=== PATIENT | male | born 1960 | race Caucasian/White ===

== ENCOUNTER 2017-09-29 08:33 | Inpatient (IN) ==
[2017-09-29] MEDS ORDERED: Esmolol Bolus Inj 100 MG/10 ML Vial IV.PUSH ONE (08:49)
--- NOTE | 2017-09-29 08:58 | ED ---
HPI General Chief Complaint: Shortness of Breath/Dyspnea Stated Complaint: SOB Time Seen by Provider: 09/29/17 08:41 Source: patient Mode of arrival: ambulatory Limitations: no limitations History of Present Illness The patient is 57 years old and arrives to the ED with shortness of breath and chest discomfort. He has been gradually worsening over the past few days. He also notes swelling in the abdomen the legs. He takes a baby aspirin every day and no other medication. He has a known history of atrial fibrillation. He notes lately having copious mucus production and has been taking antitussive [id number]. Patient also notes urinary frequency all day and night with urgency. No diarrhea or vomiting. MD Complaint: shortness of breath Onset (ago): day(s) Related Data Home Medications Medication Instructions Recorded Confirmed aspirin 81 mg PO DAILY 09/29/17 09/29/17 Allergies Allergy/AdvReac Type Severity Reaction Status Date / Time No Known Allergies Allergy Unverified 09/29/17 08:48 Review of Systems ROS: all other systems reviewed are negative Constitutional Denies fever(s) and Denies increased appetite PMFSH Medical History Medical History Atrial fibrillation (Acute) Hepatitis A (Acute) BPH (benign prostatic hyperplasia) (Acute) HTN (hypertension) (Acute) Surgical History Surgical History Previous back surgery (Acute) Social History Social History Smoking Status: Light tobacco smoker Tobacco Type: Cigarettes How Often Do You Have a Drink Containing Alcohol: Monthly or less Recent Travel in [facility] within the Last 8 Weeks: No Recent Out of Country Travel within the Last 8 Weeks: No Exam Narrative Exam Narrative: GENERAL: 57-year-old male well-nourished well-developed mild to moderate distress secondary to pain in her tachycardia and her anxiety SKIN: Focused skin assessment warm/dry. HEAD: Atraumatic. Normocephalic. EYES: Pupils equal and round. No scleral icterus. No injection or drainage. ENT: No nasal bleeding or discharge. Mucous membranes pink and moist. NECK: Trachea midline. No JVD. CARDIOVASCULAR: Irregular. Tachycardic to about 160. RESPIRATORY: No accessory muscle use. Clear to auscultation. Breath sounds equal bilaterally. GASTROINTESTINAL: The abdomen is fairly prominent. No focal tenderness. MUSCULOSKELETAL: 2+ pitting edema from the mid calf distally bilaterally. No gross deformity. NEUROLOGICAL: Awake and alert. No obvious cranial nerve deficits. Motor grossly within normal limits. Normal speech. PSYCHIATRIC: Appropriate mood and affect; insight and judgment normal. Course Initial Documented Vital Signs Temperature 97.4 F L 09/29/17 08:43 Pulse Rate 170 H 09/29/17 08:43 Respiratory Rate 28 H 09/29/17 08:43 Blood Pressure 160/104 H 09/29/17 08:43 Pulse Oximetry 96 09/29/17 08:43 Last Documented Vital Signs Temperature 97.4 F L 09/29/17 08:43 Pulse Rate 105 H 09/29/17 09:30 Respiratory Rate 20 09/29/17 09:30 Blood Pressure 119/92 H 09/29/17 09:30 Pulse Oximetry 98 09/29/17 09:30 Critical Care Time Critical Care Time: Yes Total Critical Care Time: 35 Attestation: Aggregate critical care time was 40 minutes. Time to perform other separately billable procedures was not included in the critical care time. My time did not include minutes spent treating any other patients simultaneously or on activities that did not directly contribute to the patient's treatment. The services I provided to this patient were to treat and/or prevent clinically significant deterioration that could result in: cardiopulmonary arrest/decompensation I provided critical care services requiring my management, as noted below: Chart data review, documentation time, medication orders and management, vital sign assessments/reviewing monitor data, ordering and reviewing lab tests, ordering and interpreting/reviewing x-rays and diagnostic studies, care of the patient and discussion of the patient with the admitting physicians. Medical Decision Making MDM Narrative Medical decision making narrative: The patient is 57 years old. He arrives with A. fib RVR at a rate of 160 to 170. He received diltiazem 20 mg and the heart rate decreased to about 110. Cardiomegaly with clear lungs observed. BNP 500s. There is some concern for pericardial effusion. Case discussed with Dr. Fajardo for the buckle frame shaper service. Case discussed with Dr. Mcgrath for the cardiology service. CT thorax added on for characterization of pleural effusion. Echocardiogram added on about the time of admission. Lab Data Lab results reviewed: Yes I reviewed the patient's lab results. Lab results narrative: LFTs essentially normal BNP 565 Lipase WNL Tn 0.04 Result diagrams: 09/29/17 08:55 09/29/17 08:55 Lab Results 09/29/17 09/29/17 09/29/17 Range/Units 08:55 08:55 08:55 WBC 9.9 (4.0-11.0) th/mm3 RBC 5.17 (4.50-5.90) mil/mm3 Hgb 15.4 (13.0-17.0) gm/dL Hct 46.7 (39.0-51.0) % MCV 90.5 (80.0-100.0) fL MCH 29.7 (27.0-34.0) pg MCHC 32.8 (32.0-36.0) % RDW 14.9 (11.6-17.2) % Plt Count 221 (150-450) th/mm3 MPV 7.8 (7.0-11.0) fL Neut % (Auto) 60.4 (16.0-70.0) % Lymph % (Auto) 28.4 (9.0-44.0) % [place] % (Auto) 9.8 H (0.0-8.0) % Eos % (Auto) 0.8 (0.0-4.0) % Baso % (Auto) 0.6 (0.0-2.0) % Neut # (Auto) 6.0 (1.8-7.7) th/mm3 Lymph # (Auto) 2.8 (1.0-4.8) th/mm3 [place] # (Auto) 1.0 H (0.0-0.9) th/mm3 Eos # (Auto) 0.1 (0.0-0.4) th/mm3 Baso # (Auto) 0.1 (0.0-0.2) th/mm3 WBC Differential . Differential Comment Auto diff final PT 12.7 H (9.8-11.6) sec INR 1.3 Ratio APTT 26.4 (24.3-30.1) sec Sodium (136-145) meq/L Potassium (3.5-5.1) meq/L Chloride (98-107) meq/L Carbon Dioxide (21.0-32.0) meq/L Anion Gap (5-15) meq/L BUN (7-18) mg/dL Creatinine (0.60-1.30) mg/dL Estimated GFR (>89) mL/min Random Glucose (74-106) mg/dL Calcium (8.5-10.1) mg/dL Magnesium (1.5-2.5) mg/dL Total Bilirubin (0.2-1.0) mg/dL AST (15-37) U/L ALT (12-78) U/L Alkaline Phosphatase (45-117) U/L Troponin I 0.04 (0.02-0.05) ng/mL B-Natriuretic Peptide (0-100) pg/mL Total Protein (6.4-8.2) g/dL Albumin (3.4-5.0) g/dL Lipase 295 (73-393) U/L Urine Color (Yellw/Straw) Urine Clarity (Clear) Urine pH (5.0-8.5) Ur Specific [place] (1.002-1.035) Urine Protein (Neg-Trace) mg/dL Urine Glucose (UA) (Negative) mg/dL Urine Ketones (Negative) mg/dL Urine Occult Blood (Negative) Urine Nitrate (Negative) Urine Bilirubin (Negative) Urine Urobilinogen (Less than 2) mg/dL Ur Leukocyte Esterase (Negative) Urine RBC (0-3) /hpf Urine WBC (0-5) /hpf Ur Squamous Epith Cells (0-5) /hpf Urine Bacteria (None) /hpf Hyaline Casts (0-3) /lpf Granular Casts (None) /lpf Serum Alcohol Less than 3 (0-5) mg/dL 09/29/17 09/29/17 09/29/17 Range/Units 08:55 08:55 11:00 WBC (4.0-11.0) th/mm3 RBC (4.50-5.90) mil/mm3 Hgb (13.0-17.0) gm/dL Hct (39.0-51.0) % MCV (80.0-100.0) fL MCH (27.0-34.0) pg MCHC (32.0-36.0) % RDW (11.6-17.2) % Plt Count (150-450) th/mm3 MPV (7.0-11.0) fL Neut % (Auto) (16.0-70.0) % Lymph % (Auto) (9.0-44.0) % [place] % (Auto) (0.0-8.0) % Eos % (Auto) (0.0-4.0) % Baso % (Auto) (0.0-2.0) % Neut # (Auto) (1.8-7.7) th/mm3 Lymph # (Auto) (1.0-4.8) th/mm3 [place] # (Auto) (0.0-0.9) th/mm3 Eos # (Auto) (0.0-0.4) th/mm3 Baso # (Auto) (0.0-0.2) th/mm3 WBC Differential Differential Comment PT (9.8-11.6) sec INR Ratio APTT (24.3-30.1) sec Sodium 140 (136-145) meq/L Potassium 4.8 (3.5-5.1) meq/L Chloride 104 (98-107) meq/L Carbon Dioxide 29.8 (21.0-32.0) meq/L Anion Gap 6 (5-15) meq/L BUN 22 H (7-18) mg/dL Creatinine 1.18 (0.60-1.30) mg/dL Estimated GFR 63 L (>89) mL/min Random Glucose 107 H (74-106) mg/dL Calcium 8.9 (8.5-10.1) mg/dL Magnesium 2.1 (1.5-2.5) mg/dL Total Bilirubin 1.3 H (0.2-1.0) mg/dL AST 33 (15-37) U/L ALT 42 (12-78) U/L Alkaline Phosphatase 96 (45-117) U/L Troponin I (0.02-0.05) ng/mL B-Natriuretic Peptide 565 H (0-100) pg/mL Total Protein 7.0 (6.4-8.2) g/dL Albumin 3.5 (3.4-5.0) g/dL Lipase (73-393) U/L Urine Color Yellow (Yellw/Straw) Urine Clarity Clear (Clear) Urine pH 5.0 (5.0-8.5) Ur Specific [place] 1.023 (1.002-1.035) Urine Protein 30 H (Neg-Trace) mg/dL Urine Glucose (UA) Negative (Negative) mg/dL Urine Ketones Negative (Negative) mg/dL Urine Occult Blood Small H (Negative) Urine Nitrate Negative (Negative) Urine Bilirubin Negative (Negative) Urine Urobilinogen 2.0 H (Less than 2) mg/dL Ur Leukocyte Esterase Negative (Negative) Urine RBC 1 (0-3) /hpf Urine WBC 1 (0-5) /hpf Ur Squamous Epith Cells 1 (0-5) /hpf Urine Bacteria Rare H (None) /hpf Hyaline Casts 1 (0-3) /lpf Granular Casts 1 (None) /lpf Serum Alcohol (0-5) mg/dL Imaging Data Attestation: I personally reviewed and interpreted this imaging study as follows : My impression: Marked cardiomegaly lungs relatively clear lung is noted on plain film. Radiologist's impression: Chest X-Ray 09/29/17 08:47 CONCLUSION: Enlargement of the cardiac silhouette. Differential consideration would include cardiomegaly versus pericardial effusion. There is been significant interval increase in size since 2011. Chest CT 09/29/17 11:43 CONCLUSION: 1. Global cardiomegaly with minimal basilar edema and atelectasis. Mild emphysema. No significant pleural effusion. 2. Small pericardial effusion. 3. Mild ascites. 4. Mild coronary calcifications. ECG Data Interpretation: EKG: afib, rate 160s, non-specific st changes multiple leads Discharge Plan Discharge Disposition Patient Disposition: 30 Still Patient Physicians Team ED Provider: Pete Knowles Primary Care Provider: Primary Care Grecia,Barbara Attending Provider: Constantino Fajardo Other Providers: Errol Mcgrath Status ED Status: Admitted Patient
--- NOTE | 2017-09-29 09:11 | XR ---
EXAM DATE: 09/29/2017 9:08 AM EDT AGE/SEX: 57 years / Male INDICATIONS: Shortness of breath. CLINICAL DATA: This is the patient's initial encounter. Patient reports that signs and symptoms have been present for 1 day and indicates a pain score of 0/10. MEDICAL/SURGICAL HISTORY: Hypertension. None. COMPARISON: [facility] – [place], CHEST SINGLE AP, 07/21/2011. . FINDINGS: There is advanced cardiomegaly. The cardiac silhouette is considerably larger than previous dated 07/20. Pericardial effusion is not excluded. The lungs are clear. The bony structures are grossly int act. CONCLUSION: Enlargement of the cardiac silhouette. Differential consideration would include cardiomegaly versus p ericardial effusion. There is been significant interval increase in size since 2011. Electronically signed by: Pete Flanagan MD 09/29/2017 9:10 AM EDT
[2017-09-29] MEDS ORDERED: dilTIAZem Inj 50 MG/10 ML Vial IV.PUSH ONE ×2 (09:15→09:30)
[2017-09-29 09:17] LABS: Baso # (Auto) 0.1 th/mm3 (0.0-0.2); Baso % (Auto) 0.6 % (0.0-2.0); Eos # (Auto) 0.1 th/mm3 (0.0-0.4); Eos % (Auto) 0.8 % (0.0-4.0); Hematocrit 46.7 % (39.0-51.0); Hemoglobin 15.4 gm/dL (13.0-17.0); Lymph # (Auto) 2.8 th/mm3 (1.0-4.8); Lymph % (Auto) 28.4 % (9.0-44.0); Mean Corpuscular HGB Conc 32.8 % (32.0-36.0); Mean Corpuscular Hemoglobin 29.7 pg (27.0-34.0); Mean Corpuscular Volume 90.5 fL (80.0-100.0); Mean Platelet Volume 7.8 fL (7.0-11.0); Mono % (Auto) 9.8 % (0.0-8.0); Neut % (Auto) 60.4 % (16.0-70.0); Platelet Count 221 th/mm3 (150-450); Red Blood Count 5.17 mil/mm3 (4.50-5.90); Red Cell Distribution Width 14.9 % (11.6-17.2); White Blood Count 9.9 th/mm3 (4.0-11.0)
[2017-09-29 09:24] LABS: Activated Partial Thrombo Time 26.4 sec (24.3-30.1); INR 1.3 Ratio; Prothrombin Time 12.7 sec (9.8-11.6)
[2017-09-29 09:36] LABS: Lipase 295 U/L (73-393)
[2017-09-29 09:39] LABS: Alanine Aminotransferase 42 U/L (12-78); Albumin 3.5 g/dL (3.4-5.0); Anion Gap 6 meq/L (5-15); Aspartate Aminotransferase 33 U/L (15-37); Blood Urea Nitrogen 22 mg/dL (7-18); Calcium 8.9 mg/dL (8.5-10.1); Carbon Dioxide 29.8 meq/L (21.0-32.0); Chloride 104 meq/L (98-107); Glomerular Filtration Rate 63 mL/min (>89); Glucose,Random 107 mg/dL (74-106); Magnesium 2.1 mg/dL (1.5-2.5); Potassium 4.8 meq/L (3.5-5.1); Sodium 140 meq/L (136-145); Troponin I 0.04 ng/mL (0.02-0.05)
[2017-09-29 09:42] LABS: Alkaline Phosphatase 96 U/L (45-117)
[2017-09-29 11:54] LABS: Bacteria,Urine Rare /hpf; Bilirubin,Urine Negative (Negative); Color,Urine Yellow (Yellw/Straw); Glucose,Urine (UA) Negative (Negative); Hyaline Casts,Urine 1 /lpf (0-3); Leukocyte Esterase,Urine Negative (Negative); Nitrite,Urine Negative (Negative); Specific Gravity,Urine 1.023 (1.002-1.035); Squamous Epithelial Cell,Urine 1 /hpf (0-5)
[2017-09-29 11:56] LABS: Clarity,Urine Clear (Clear)
--- NOTE | 2017-09-29 12:38 | CT ---
EXAM DATE: 09/29/2017 12:21 PM EDT AGE/SEX: 57 years / Male INDICATIONS: Shortness of breath, worsening over the last week. Abdominal distention. CLINICAL DATA: This is the patient's initial encounter. Patient reports that signs and symptoms have been present for 1 day and indicates a pain score of 0/10. MEDICAL/SURGICAL HISTORY: Cardiovascular disease. Hypertension. None. RADIATION DOSE: 18.58 CTDI (mGy) COMPARISON: No prior exams available for comparison. TECHNIQUE: Multiple contiguous axial images were obtained through the chest without contrast. Image s were obtained in suspended respiration using multiple row detector helical technique. Using automa alivia exposure control and adjustment of the mA and/or kV according to patient size, radiation dose was kept as low as reasonably achievable to obtain optimal diagnostic quality images. DICOM format imag e data is available electronically for review and comparison. FINDINGS: There is global cardiomegaly. There is a minimal groundglass opacity in the bases which could represe nt minimal edema. Also basilar atelectasis there is a small pericardial. No significant pleural effus ion. Mild centrilobular and paraseptal emphysema. Mildly enlarged mediastinal lymph nodes present, probably edematous. Mild coronary calcifications. Upper abdomen reveals mild ascites. CONCLUSION: 1. Global cardiomegaly with minimal basilar edema and atelectasis. Mild emphysema. No significant pl eural effusion. 2. Small pericardial effusion. 3. Mild ascites. 4. Mild coronary calcifications. Electronically signed by: Daniel Alvarez MD 09/29/2017 12:36 PM EDT
--- NOTE | 2017-09-29 12:42 | ECG ---
Date Performed: 09/29/2017 Time Performed: 08:44:38 PTAGE: 57 years EKG: ATRIAL FIBRILLATION WITH RAPID VENTRICULAR RESPONSE POSSIBLE RIGHT VENTRICULAR CONDUCTION D ELAY NONSPECIFIC ST & T-WAVE ABNORMALITY ABNORMAL RHYTHM ECG Compared to prior electrocardiogram, rat e has increased NO PREVIOUS TRACING DOCTOR: Mitchell Hill Interpretating Date/Time 09/29/2017 12:41:46
[2017-09-29] MEDS ORDERED: Acetaminophen 325 MG Tablet PO PRN (12:55)
[2017-09-29] MEDS ORDERED: Bisacodyl 10 MG Supp RECTAL PRN (12:55)
[2017-09-29] MEDS ORDERED: Metoprolol Inj 5 MG/5 ML Vial IV.PUSH STA (13:03)
[2017-09-29] MEDS: Esmolol 2,500 mg/250 mL Premix 2,500 MG/250 ML BAG IV.CONT PRN ×5 (13:13→23:18)
--- NOTE | 2017-09-29 13:26 | P.HPCC ---
History of Present Illness Primary Care Physician: No Primary Care Physician Chief Complaint: Shortness of Breath worsening since 1 week History of Present Illness: 57-year-old male with a medical history significant for atrial fibrillation who has not followed up with physicians for years who presented to the ER today with progressive shortness of breath worsening over the last week or so with increasing abdominal distention as well as palpitations. On arrival to the ER patient was noted to be in A. fib with RVR. A bedside ultrasound performed by ER physician revealed no pericardial effusion. His chest x-ray showed cardiomegaly. Patient underwent a CT chest which revealed small pericardial effusion, cardiomegaly. Patient was accepted for admission by critical care medicine service. When I evaluated the patient in the ER he was sitting up in the ER stretcher still short of breath with heart rate in the 130s. He denies any fevers chills hemoptysis or abdominal pain. He does complain of increasing abdominal distention over the last 1 week with abdominal tightness. Patient tells me that he takes aspirin at home. He has not seen a physician for years due to lack of insurance. Inpatient Certification: I certify that the inpatient services were ordered in accordance with Medicare regulations governing the order. This includes certification that hospital inpatient services are reasonable and necessary and in the case of services not specified as inpatient-only under 42 CFR 419.22(n), that they are appropriately provided as inpatient services in accordance to with the 2-midnight benchmark under 43 CFR 412.3(e) Estimated Total Length of Stay (Days): 5 Plans for Post Hospital Care: Not yet determined Review of Systems All other systems reviewed negative except as stated in HPI [facility] - History History Provided By: Patient - Medical History Medical History: Medical History (Last Updated 09/29/17 @ 09:09 by Grady Arnold RN) Atrial fibrillation Hepatitis A BPH (benign prostatic hyperplasia) HTN (hypertension) - Surgical History Surgical History: Surgical History (Last Updated 09/29/17 @ 08:50 by Grady Arnold RN) Previous back surgery - Tobacco History Tobacco Use In Past 30 Days: Yes Smoking Status: Light tobacco smoker Tobacco Type: Cigarettes - Alcohol History How Often Do You Have a Drink Containing Alcohol: Monthly or less - Travel History Recent Travel in the [place] Within the Last 8 Weeks: No Recent Travel Out of the Country Within the Last 8 Weeks: No - Immunization History Tetanus Immunization: >5 Years Hx Influenza Vaccine This Season: No Medications and Allergies Active Medications: Active Medications Acetaminophen (Tylenol) 650 mg PO Q6H PRN PRN Reason: PAIN 1-10 AND/OR FEVER >101F Al Hydroxide/Mg Hydroxide (Milk Of Magnesia Liq) 30 ml PO Q12H PRN PRN Reason: Mild Constipation Bisacodyl (Dulcolax Supp) 10 mg RECTAL DAILY PRN PRN Reason: SEVERE CONSITIPATION Chlorhexidine Gluconate (Chlorhexidine 2% Cloth) 3 pack TOPICAL DAILY@0400 ANGE Stop: 10/05/17 03:59 Chlorhexidine Gluconate (Chlorhexidine 2% Cloth) 3 pack TOPICAL DAILY@0400 PRN PRN Reason: Extra cloth needed Stop: 10/05/17 03:59 Enoxaparin Sodium (Lovenox Inj) 40 mg SQ Q24H ANGE Famotidine (Pepcid) 20 mg PO BID ANGE Furosemide (Lasix Inj) 40 mg IV.PUSH ONCE STA Stop: 09/29/17 13:06 Furosemide (Lasix Inj) 40 mg IV.PUSH BID@0900,1800 ANGE Esmolol HCl (Brevibloc 2,500 Mg/Ns 250 Ml Premix) 2,500 mg in 250 mls @ 35.28 mls/hr IV.CONT TITRATE PRN; Protocol PRN Reason: Per Protocol Ipratropium [place] (Atrovent Neb) 0.5 mg NEB Q6HR NEB ANGE Lactulose (Lactulose Liq) 30 ml PO DAILY PRN PRN Reason: SEVERE CONSITIPATION Metoprolol Tartrate (Lopressor Inj) 5 mg IV.PUSH Q6H PRN PRN Reason: SEE DOSE INSTRUCTIONS Metoprolol Tartrate (Lopressor Inj) 5 mg IV.PUSH ONCE STA Stop: 09/29/17 13:04 Ondansetron HCl (Zofran Inj) 4 mg IV.PUSH Q6H PRN PRN Reason: NAUSEA OR VOMITING Senna/Docusate Sodium (Yoly-Colace) 1 tab PO BID ANGE Sennosides (Senokot) 17.2 mg PO Q12H PRN PRN Reason: Moderate Constipation Sodium Chloride (Ns Flush) 2 ml IV.FLUSH UNSCH PRN PRN Reason: FLUSH AFTER USING IV ACCESS Sodium Chloride (Ns Flush) 2 ml IV.FLUSH BID ANGE Sodium Chloride (Ns Flush) 2 ml IV.FLUSH PRN PRN PRN Reason: FLUSH AFTER USING IV ACCESS Allergies Allergy/AdvReac Type Severity Reaction Status Date / Time No Known Allergies Allergy Unverified 09/29/17 08:48 Home Medications Medication Instructions Recorded Confirmed Type aspirin 81 mg PO DAILY 09/29/17 09/29/17 History Results - Labs CBC & Chem 7: 09/29/17 08:55 09/29/17 08:55 Labs: Short CBC 09/29/17 Range/Units 08:55 WBC 9.9 (4.0-11.0) th/mm3 Hgb 15.4 (13.0-17.0) gm/dL Hct 46.7 (39.0-51.0) % Plt Count 221 (150-450) th/mm3 BMP 09/29/17 08:55 Sodium 140 Potassium 4.8 Chloride 104 Carbon Dioxide 29.8 BUN 22 H Creatinine 1.18 Calcium 8.9 Cardiac Enzymes 09/29/17 Range/Units 08:55 Troponin I 0.04 (0.02-0.05) ng/mL Liver Function 09/29/17 Range/Units 08:55 Total Bilirubin 1.3 H (0.2-1.0) mg/dL AST 33 (15-37) U/L ALT 42 (12-78) U/L Alkaline Phosphatase 96 (45-117) U/L Albumin 3.5 (3.4-5.0) g/dL Urine 09/29/17 Range/Units 11:00 Urine Color Yellow (Yellw/Straw) Urine Clarity Clear (Clear) Urine pH 5.0 (5.0-8.5) Ur Specific [place] 1.023 (1.002-1.035) Urine Protein 30 H (Neg-Trace) mg/dL Urine Glucose (UA) Negative (Negative) mg/dL - Imaging Impressions Chest X-Ray 09/29/17 08:47 CONCLUSION: Enlargement of the cardiac silhouette. Differential consideration would include cardiomegaly versus pericardial effusion. There is been significant interval increase in size since 2011. Chest CT 09/29/17 11:43 CONCLUSION: 1. Global cardiomegaly with minimal basilar edema and atelectasis. Mild emphysema. No significant pleural effusion. 2. Small pericardial effusion. 3. Mild ascites. 4. Mild coronary calcifications. Exam Vital signs: Vital Signs 09/29/17 08:43 09/29/17 08:47 09/29/17 08:53 Temperature 97.4 F L Pulse Rate 170 H 169 H Respiratory Rate 28 H Blood Pressure 160/104 H Pulse Oximetry 96 99 99 09/29/17 09:30 Temperature Pulse Rate 105 H Respiratory Rate 20 Blood Pressure 119/92 H Pulse Oximetry 98 Intake & Output 09/28/17 09/29/17 09/29/17 18:59 06:59 18:59 Weight 117.6 kg Narrative: HEENT/Neuro: No pallor or icterus, tongue moist, JAMEY, Awake alert oriented 3 , nonfocal grossly, moving all 4 extremities Neck: JVD difficult to appreciate due to body habitus. Chest/pulmonary: Air entry decreased bilaterally at bases, scattered rhonchi, no wheezing. Bibasilar crackles. Cardiovascular: S1-S2 irregularly irregular no gallop or murmur GI/abdomen: Distended, firm, nontender, bowel sounds sluggish, no organomegaly appreciated Extremities: Warm bilaterally, bilateral edema Caprini VTE Risk Assessment Caprini VTE Risk Assessment: Moderate/High Risk (score >= 2) Caprini Risk Assessment Model: Point Value = 1 Point Value = 2 Point Value = 3 Point Value = 5 Age 41-60 Minor surgery BMI > 25 kg/m2 Swollen legs Varicose veins or History of unexplained or recurrent spontaneous Oral contraceptives or hormone replacement Sepsis (< 1 month) Serious lung disease, including pneumonia (< 1 month) Abnormal pulmonary function Acute myocardial infarction Congestive heart failure (< 1 month) History of inflammatory bowel disease Medical patient at bed rest Age 61-74 Arthroscopic surgery Major open surgery (> 45 min) Laparoscopic surgery (> 45 min) Malignancy Confined to bed (> 72 hours) Immobilizing plaster cast Central venous access Age >= 75 History of VTE Family history of VTE Factor V Leiden Prothrombin [id number] Lupus anticoagulant Anticardiolipin antibodies Elevated serum homocysteine Heparin-induced thrombocytopenia Other congenital or acquired thrombophilia Stroke (< 1 month) Elective arthroplasty Hip, pelvis, or leg fracture Acute spinal cord injury (< 1 month) Prophylaxis Regimen: Total Risk Factor Score Risk Level Prophylaxis Regimen 0-1 Low Early ambulation 2 Moderate Order ONE of the following: *Sequential Compression Device (SCD) *Heparin 5000 units SQ BID 3-4 Higher Order ONE of the following medications: *Heparin 5000 units SQ TID *Enoxaparin/Lovenox 40 mg SQ daily (WT < 150 kg, CrCl > 30 mL/min) *Enoxaparin/Lovenox 30 mg SQ daily (WT < 150 kg, CrCl > 10-29 mL/min) *Enoxaparin/Lovenox 30 mg SQ BID (WT < 150 kg, CrCl > 30 mL/min) AND/OR *Sequential Compression Device (SCD) 5 or more Highest Order ONE of the following medications: *Heparin 5000 units SQ TID (Preferred with Epidurals) *Enoxaparin/Lovenox 40 mg SQ daily (WT < 150 kg, CrCl > 30 mL/min) *Enoxaparin/Lovenox 30 mg SQ daily (WT < 150 kg, CrCl > 10-29 mL/min) *Enoxaparin/Lovenox 30 mg SQ BID (WT < 150 kg, CrCl > 30 mL/min) AND *Sequential Compression Device (SCD) Assessment and Plan - Assessment and Plan Plan: 57-year-old male with: Acute respiratory failure CHF A. fib with RVR Pericardial effusion History of BPH Morbid obesity Plan: Neuro: Follow neuro status. Starting aspirin for stroke prophylaxis. May need full anticoagulation following cardiology eval for A. fib. Cardiovascular: Metoprolol 5 mg IV stat followed by 5 mg IV every 6 hourly as needed for rate control. Esmolol drip to be initiated. Will add Cardizem CD 180 mg p.o. daily. Diuresis with Lasix. Stat 2D echo ordered earlier further evaluate pericardial effusion. Follow serial cardiac enzymes. Cardiology consult requested. Pulmonary: Continue supplemental O2. Atrovent nebs every 6 hourly. GI/liver: Cardiac diet ordered. Zofran as needed for nausea vomiting. Pepcid p.o. for GI prophylaxis /renal: Diuresis with Lasix, strict intake output, monitor and replete electrolytes, follow BUN creatinine. ID: No indication for antibiotics at this time. Heme: Follow CBC and coags. Patient may require full anticoagulation for A. fib. Will await cardiology evaluation. Endocrine: Watch for hyperglycemia, SSI for glycemic control if needed. Prophylaxis: Pepcid/SCDs/Lovenox. Condition critical Time spent on critical care excluding procedures 45 minutes
[2017-09-29] MEDS ORDERED: Digoxin Inj 500 MCG/2 ML Ampul IV.PUSH STA (13:30)
[2017-09-29] MEDS: Digoxin Inj 500 MCG/2 ML Ampul IV.PUSH ONE ×2 (16:10→16:18)
--- NOTE | 2017-09-29 16:14 | ECHRPT ---
Indication: ATRIAL FIB/FLUTTER CONCLUSIONS Upper normal left ventricular size. Mild concentric left ventricular hypertrophy. The left ventricular systolic function is severely reduced with an estimated ejection fraction of 20 %. The basal posterior wall contracts fairly normally. All other ocampo are severely hypokinetic. The right ventricle was not well visualized. The right ventricular systolic function is probably at least mildly decreased. The right ventricle is probably mildly dilated. The right atrial size is moderately dilated. The left atrial size is moderately dilated. There is moderate to severe tricuspid valve regurgitation. The estimated pulmonary arterial pressure is 44 mmHg. Trace mitral regurgitation. There is a small pericardial effusion present. No tamponade physiology. BP: / HR: Rhythm: Sinus MEASUREMENTS (Male / Female) Normal Values Technical Quality:Fair 2D ECHO LV Diastolic Diameter PLAX 5.0 cm 4.2 - 5.9 / 3.9 - 5.3 cm LV Systolic Diameter PLAX 4.7 cm IVS Diastolic Thickness 1.2 cm 0.6 - 1.0 / 0.6 - 0.9 cm LVPW Diastolic Thickness 1.2 cm 0.6 - 1.0 / 0.6 - 0.9 cm LV Relative Wall Thickness 0.5 RV Internal Dim ED PLAX 3.8 cm LVOT Diameter 2.4 cm Aortic Root Diameter 2.9 cm LA Systolic Diameter LX 5.2 cm 3.0 - 4.0 / 2.7 - 3.8 cm M-MODE AV Cusp Separation MM 2.0 cm DOPPLER AV Peak Velocity 106.2 cm/s AV Peak Gradient 4.5 mmHg AV Mean Gradient 2.5 mmHg AV Velocity Time Integral 14.5 cm LVOT Peak Velocity 49.4 cm/s LVOT Peak Gradient 1.0 mmHg LVOT Velocity Time Integral 6.6 cm AV Area Cont Eq vti 2.1 cm AV Area Cont Eq pk 2.1 cm Mitral E Point Velocity 79.7 cm/s LV E' Lateral Velocity 12.5 cm/s Mitral E to LV E' Lateral Ratio 6.4 LV E' Septal Velocity 8.5 cm/s Mitral E to LV E' Septal Ratio 9.4 TR Peak Velocity 292.0 cm/s TR Peak Gradient 34.1 mmHg Right Atrial Pressure 10.0 mmHg Pulmonary Artery Systolic Pressu 44.1 mmHg Right Ventricular Systolic Press 44.1 mmHg PV Peak Velocity 34.6 cm/s PV Peak Gradient 0.5 mmHg FINDINGS LEFT VENTRICLE Upper normal left ventricular size. Mild concentric left ventricular hypertrophy. The left ventricular systolic function is severely reduced with an estimated ejection fraction of 20 %. The basal posterior wall contracts fairly normally. All other ocampo are severely hypokinetic. RIGHT VENTRICLE The right ventricle was not well visualized. The right ventricular systolic function is probably at least mildly decreased. The right ventricle is probably mildly dilated. LEFT ATRIUM The left atrial size is moderately dilated. RIGHT ATRIUM The right atrial size is moderately dilated. ATRIAL SEPTUM No atrial level shunt is demonstrated by color flow Doppler interrogation. AORTA The aortic root and proximal ascending aorta are normal in size on limited imaging. MITRAL VALVE Mild thickening of the mitral valve leaflets. Trace mitral regurgitation. AORTIC VALVE Trileaflet aortic valve. No aortic valve stenosis or regurgitation. TRICUSPID VALVE There is moderate to severe tricuspid valve regurgitation. The estimated pulmonary arterial pressure is 44 mmHg. PULMONARY VALVE No pulmonary valve regurgitation or stenosis. PERICARDIUM There is a small pericardial effusion present. No tamponade physiology. Errol Mcgrath MD (Electronically Signed) Final Date:29 September 2017 16:12
--- NOTE | 2017-09-29 16:46 | MB ---
cc: Errol Mcgrath MD DATE: 09/29/2017 REASON FOR CONSULTATION: Pericardial effusion, atrial fibrillation, shortness of breath. HISTORY OF PRESENT ILLNESS: The patient is a 57-year-old white male with a history of atrial fibrillation, which is likely chronic, hepatitis A, hypertension, who presented to the emergency department with a number of complaints, most notably increased shortness of breath and abdominal distention. In the last several months, he has noted progressively worsening shortness of breath with minimal to no exertion. In addition, he has experienced paroxysmal nocturnal dyspnea and 2- to 3-pillow orthopnea for the past few months. He denies chest pain, palpitations, syncope, near-syncope, pedal edema. At times, he feels mildly lightheaded for a few seconds. In the emergency department, he was found to be in atrial fibrillation with a rapid ventricular response. CT of the chest and apparently bedside echo suggested small pericardial effusion. The patient believes he may have had flu symptoms about a year ago, but none since. He denies any history of alcohol or drug abuse. He has abdominal distension for at least the past week. PAST MEDICAL HISTORY: 1. Atrial fibrillation, which is likely chronic. The patient has an EKG from 02/17/1988 showing atrial fibrillation as well as an EKG from 2011 showing atrial fibrillation. 2. Hypertension. 3. Hepatitis A. CARDIAC MEDICATIONS AT HOME: Aspirin 81 mg daily. CARDIAC MEDICATIONS HERE IN THE HOSPITAL: Aspirin 162 mg p.o. daily, Lovenox 40 mg subcutaneously q.24 hours, esmolol drip, furosemide 40 mg IV b.i.d., metoprolol tartrate 5 mg IV q.6 hours p.r.n. ALLERGIES: NO KNOWN DRUG ALLERGIES. FAMILY HISTORY: There is no significant family history of early myocardial infarction or sudden cardiac . SOCIAL HISTORY: The patient quit smoking cigarettes about a week ago. Prior to that, he was smoking about a pack per week. He also quit drinking alcohol a week ago. Prior to that, he was drinking about 7 alcoholic drinks per week. REVIEW OF SYSTEMS: As in the history of present illness, otherwise negative or noncontributory. He also denies headache, abdominal pain, melena, dyspepsia, bright red blood per rectum, fevers. PHYSICAL EXAMINATION: VITAL SIGNS: His blood pressure 115/90 with a pulse of 115, respirations 20. GENERAL: He is a well-developed, well-nourished white male, in no acute distress. NECK: Jugular venous pressure is hard to assess. Carotid pulses are 2+ bilaterally and without bruits. CHEST: Reveals diminished breath sounds at the bases. CARDIAC: He has a tachycardic irregular rhythm without S3 or murmur. ABDOMEN: He has a soft, obese abdomen, which may be mild to moderately distended. No definite fluid wave is appreciated. Bowel sounds are present. EXTREMITIES: Reveals no clubbing or cyanosis. There is 1+ pretibial edema bilaterally. LABORATORY DATA: Includes normal CBC. Potassium 4.8, BUN 22, creatinine 1.18. Brain natriuretic peptide level 565. Troponin 0.04. INR 1.3. Chest x-ray shows increased cardiac silhouette, although with overall probable clear lung luna. IMPRESSION: Elevated heart rates, probable right greater than left-sided congestive heart failure, small pericardial effusion in this 57-year-old white male with history of atrial fibrillation, which is likely chronic, history of hypertension, hepatitis A. At this time, he remains in atrial fibrillation with mildly elevated heart rates. There is no definite evidence for acute coronary syndrome. EKG shows nonspecific T-wave abnormalities. I suspect the patient has severe left and right ventricular systolic dysfunction. The etiology of his probable cardiomyopathy is likely nonischemic in origin. Alternatively, it may be tachycardia mediated. The patient denies any history of alcohol or IV drug abuse. If indeed his left ventricular function is reduced, his thromboembolic risk with atrial fibrillation is high. RECOMMENDATIONS: 1. Await his 2-D echo. 2. Agree with intravenous Lasix and beta og therapy. 3. Add an FINN inhibitor as his blood pressures tolerate. 4. In anticipation that his left ventricular function will be reduced on echocardiogram, recommend starting warfarin. MD TOI Torres/santa , 02:16 PM , 02:28 PM KRIS
[2017-09-29] MEDS: Enoxaparin Inj 40 MG/0.4 ML Syringe SQ SCH (17:39)
[2017-09-29] MEDS: Famotidine 20 MG Tablet PO SCH (21:14)
[2017-09-29] MEDS: Senna/Docusate Sodium 8.6/50 MG Tablet PO SCH (21:15)
[2017-09-29] MEDS: Metoprolol Tartrate 25 MG Tablet PO SCH (21:15)
[2017-09-30] MEDS: Esmolol 2,500 mg/250 mL Premix 2,500 MG/250 ML BAG IV.CONT PRN ×4 (01:49→07:58)
[2017-09-30] MEDS ORDERED: Chlorhexidine Gluconate 2% 1 Pack (2 Cloths) TOPICAL PRN (04:00)
[2017-09-30] MEDS: Chlorhexidine Gluconate 2% 1 Pack (2 Cloths) TOPICAL SCH (06:03)
[2017-09-30 07:13] LABS: Hemoglobin 14.4 gm/dL (13.0-17.0); Red Blood Count 4.78 mil/mm3 (4.50-5.90)
[2017-09-30 07:14] LABS: Baso # (Auto) 0.1 th/mm3 (0.0-0.2); Baso % (Auto) 0.7 % (0.0-2.0); Eos # (Auto) 0.1 th/mm3 (0.0-0.4); Eos % (Auto) 0.6 % (0.0-4.0); Hematocrit 44.2 % (39.0-51.0); Lymph # (Auto) 1.8 th/mm3 (1.0-4.8); Lymph % (Auto) 18.4 % (9.0-44.0); Mean Corpuscular HGB Conc 32.6 % (32.0-36.0); Mean Corpuscular Hemoglobin 30.1 pg (27.0-34.0); Mean Corpuscular Volume 92.4 fL (80.0-100.0); Mean Platelet Volume 8.1 fL (7.0-11.0); Mono # (Auto) 0.9 th/mm3 (0.0-0.9); Mono % (Auto) 8.9 % (0.0-8.0); Neut # (Auto) 7.1 th/mm3 (1.8-7.7); Neut % (Auto) 71.4 % (16.0-70.0); Platelet Count 168 th/mm3 (150-450); Red Cell Distribution Width 14.4 % (11.6-17.2)
[2017-09-30 07:24] LABS: INR 1.3 Ratio; Prothrombin Time 12.7 sec (9.8-11.6)
[2017-09-30 07:35] LABS: Anion Gap 5 meq/L (5-15); Aspartate Aminotransferase 24 U/L (15-37); Blood Urea Nitrogen 21 mg/dL (7-18); Calcium 8.3 mg/dL (8.5-10.1); Carbon Dioxide 34.6 meq/L (21.0-32.0); Chloride 101 meq/L (98-107); Glomerular Filtration Rate 62 mL/min (>89); Glucose,Random 98 mg/dL (74-106); Potassium 4.6 meq/L (3.5-5.1); Sodium 141 meq/L (136-145)
[2017-09-30 07:41] LABS: Alanine Aminotransferase 31 U/L (12-78); Alkaline Phosphatase 88 U/L (45-117); Total Protein 6.1 g/dL (6.4-8.2); Troponin I 0.04 ng/mL (0.02-0.05)
[2017-09-30] MEDS: Metoprolol Inj 5 MG/5 ML Vial IV.PUSH PRN ×3 (07:55→14:30)
[2017-09-30] MEDS: Senna/Docusate Sodium 8.6/50 MG Tablet PO SCH ×2 (08:00→21:23)
[2017-09-30] MEDS: Famotidine 20 MG Tablet PO SCH ×2 (08:00→21:24)
[2017-09-30] MEDS: Metoprolol Tartrate 25 MG Tablet PO SCH (08:00)
--- NOTE | 2017-09-30 08:25 | P.PNCA ---
Subjective Interval history: Feeling "much better". No palpitations, SOB, dizziness, near syncope, PND, CP. Slept intermittently. Physical Exam Vital signs: Vital Signs 09/29/17 08:43 09/29/17 08:47 09/29/17 08:53 Temperature 97.4 F L Pulse Rate 170 H 169 H Respiratory Rate 28 H Blood Pressure 160/104 H Pulse Oximetry 96 99 99 09/29/17 09:30 09/29/17 11:00 09/29/17 12:00 Temperature Pulse Rate 105 H 126 H 122 H Respiratory Rate 20 19 Blood Pressure 119/92 H 128/100 H Pulse Oximetry 98 96 97 09/29/17 13:15 09/29/17 13:45 09/29/17 14:12 Temperature Pulse Rate 134 H 114 H 116 H Respiratory Rate 19 19 18 Blood Pressure 143/66 H 115/90 110/90 Pulse Oximetry 97 97 09/29/17 14:45 09/29/17 14:47 09/29/17 14:48 Temperature 97.4 F L Pulse Rate 109 H 110 H 107 H Respiratory Rate 26 H 25 H 23 Blood Pressure 143/102 H 130/94 H Pulse Oximetry 96 97 09/29/17 15:00 09/29/17 15:07 09/29/17 15:20 Temperature 97.6 F Pulse Rate 111 H 111 H 99 H Respiratory Rate 22 22 21 Blood Pressure 143/88 H 143/88 H 159/93 H Pulse Oximetry 96 96 95 09/29/17 15:41 09/29/17 16:00 09/29/17 16:01 Temperature 97.8 F Pulse Rate 101 H 104 H 101 H Respiratory Rate 32 H 21 25 H Blood Pressure 134/104 H 162/75 H 162/75 H Pulse Oximetry 93 L 94 L 96 09/29/17 16:20 09/29/17 16:33 09/29/17 16:40 Temperature Pulse Rate 107 H 101 H 99 H Respiratory Rate 23 27 H 20 Blood Pressure 155/104 H 141/96 H 137/104 H Pulse Oximetry 96 92 L 96 09/29/17 16:59 09/29/17 17:00 09/29/17 17:13 Temperature Pulse Rate 104 H 106 H 99 H Respiratory Rate 21 30 H 17 Blood Pressure 143/96 H 134/114 H Pulse Oximetry 95 94 L 09/29/17 17:20 09/29/17 17:40 09/29/17 18:00 Temperature Pulse Rate 98 H 94 H 105 H Respiratory Rate 24 22 33 H Blood Pressure 132/92 H 135/95 H Pulse Oximetry 98 96 85 L 09/29/17 18:02 09/29/17 19:00 09/29/17 20:00 Temperature 97.6 F 97.8 F Pulse Rate 105 H 83 94 H Respiratory Rate 44 H 25 H 22 Blood Pressure 121/102 H 134/79 121/74 Pulse Oximetry 96 93 L 94 L 09/29/17 20:54 09/29/17 22:00 09/29/17 23:20 Temperature 97.6 F Pulse Rate 86 96 H 83 Respiratory Rate 17 20 18 Blood Pressure 115/82 Pulse Oximetry 96 95 88 L 09/29/17 23:40 09/30/17 00:00 09/30/17 00:07 Temperature 98.0 F Pulse Rate 91 H 99 H 100 H Respiratory Rate 18 18 35 H Blood Pressure 115/67 110/75 110/75 Pulse Oximetry 96 93 L 95 09/30/17 00:20 09/30/17 00:40 09/30/17 01:00 Temperature Pulse Rate 88 94 H 93 H Respiratory Rate 18 19 27 H Blood Pressure 118/78 118/75 122/64 Pulse Oximetry 94 L 92 L 90 L 09/30/17 01:21 09/30/17 01:40 09/30/17 02:00 Temperature 98.1 F Pulse Rate 91 H 92 H 86 Respiratory Rate 27 H 18 21 Blood Pressure 107/66 118/77 106/77 Pulse Oximetry 91 L 93 L 95 09/30/17 02:21 09/30/17 02:41 09/30/17 03:00 Temperature Pulse Rate 95 H 91 H 99 H Respiratory Rate 29 H 18 39 H Blood Pressure 111/73 162/95 H Pulse Oximetry 91 L 93 L 81 L 09/30/17 03:01 09/30/17 03:20 09/30/17 03:40 Temperature Pulse Rate 98 H 94 H 85 Respiratory Rate 29 H 21 16 Blood Pressure 130/73 127/83 111/80 Pulse Oximetry 92 L 91 L 90 L 09/30/17 04:00 09/30/17 04:15 09/30/17 04:20 Temperature 97.8 F Pulse Rate 100 H 87 88 Respiratory Rate 19 17 23 Blood Pressure 110/85 116/77 Pulse Oximetry 89 L 97 09/30/17 04:40 09/30/17 05:00 09/30/17 05:01 Temperature Pulse Rate 85 97 H 104 H Respiratory Rate 16 34 H 43 H Blood Pressure 108/75 125/89 Pulse Oximetry 95 89 L 89 L 09/30/17 05:20 09/30/17 05:40 09/30/17 06:00 Temperature 97.8 F Pulse Rate 82 87 87 Respiratory Rate 15 18 20 Blood Pressure 117/65 122/75 118/71 Pulse Oximetry 92 L 93 L 91 L 09/30/17 06:20 09/30/17 06:40 09/30/17 07:00 Temperature Pulse Rate 87 87 97 H Respiratory Rate 19 18 39 H Blood Pressure 116/76 135/93 H 121/88 Pulse Oximetry 97 96 92 L Intake & Output 09/29/17 09/30/17 09/30/17 18:59 06:59 18:59 Intake Total 250 / 250 2100 / 2100 250 / 250 Output Total 5 / 177 3450 / 3450 Balance -1525 / -1525 -1350 / -1350 250 / 250 Weight 117.6 kg 53.8 kg Intake: IV 250 / 250 1500 / 1500 250 / 250 Brevibloc 2,500 mg/NS 250 mL 250 / 250 1500 / 1500 250 / 250 Premix 2,500 mg In 250 ml @ 50 MCG/KG/MIN 35.28 mls/hr IV.CONT TITRATE PRN Rx#:[id number] Oral 600 / 600 Output: Stool 0 / 0 Urine/Stool Mix 0 / 0 Urine Amount (Catheter) 5 / 177 3450 / 3450 Indwelling Urethral Catheter 1775 / 177 3450 / 3450 Other: # Bowel Movements 0 - Constitutional no acute distress - Routine Neck Exam Present: JVD Comments: JVD possibly to mandible - Routine Respiratory Exam Present: decreased breath sounds - Routine Cardiovascular Exam Present: S1, S2, irregular rhythm. Absent: murmur, gallop - Routine Abdominal Exam Present: soft, normoactive bowel sounds. Absent: tenderness, organomegaly - Routine Extremities Exam Present: edema. Absent: cyanosis, clubbing Comments: 1+ pretibial edema - Urinary Catheter Management Indwelling Urethral Catheter Cath placed during this visit: yes Reason for continuing: Hourly intake/output Insertion date: 09/29/17 Insertion time: 13:22 Assessment and Plan - Assessment (1) Congestive heart failure Code(s): I50.9 - Heart failure, unspecified Status: Chronic Plan: Improved since admission. Less abdominal distension, pedal edema. Mostly right sided CHF. EF 20% by echo, probably with some RV dysfunction as well. Moreover he has moderate to severe tricuspid regurgitation, likely contributing to ascites, pedal edema. His cardiomyopathy is likely non-ischemic in origin. 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 REC continue diuresis, optimize beta og dosing as much as BP's tolerate, continue FINN-I (2) Atrial fibrillation Code(s): I48.91 - Unspecified atrial fibrillation Status: Chronic Plan: Suspect his atrial fibrillation is chronic. Even an EKG dated 1988 shows atrial fibrillation. Atria on echo are also moderately enlarged consistent with chronic atrial fibrillation. With his history of hypertension and CHF, his thromboembolic risk is high. HR's overall better controlled. REC optimize beta og dosing as much as tolerated, continue warfarin to achieve INR 2-2.5 - Plan Code Status: full code Discussed Condition With: patient (1) Congestive heart failure Qualifiers: Heart failure type: systolic Heart failure chronicity: acute on chronic Qualified Code(s): I50.23 - Acute on chronic systolic (congestive) heart failure (2) Atrial fibrillation Qualifiers: Atrial fibrillation type: chronic Qualified Code(s): I48.2 - Chronic atrial fibrillation
[2017-09-30] MEDS ORDERED: Metoprolol Tartrate 25 MG Tablet PO PRN (08:39)
--- NOTE | 2017-09-30 12:15 | P.PNCC ---
Subjective Subjective Remarks/Hospital Course: 09/29: 57-year-old male with a medical history significant for atrial fibrillation who has not followed up with physicians for years who presented to the ER today with progressive shortness of breath worsening over the last week or so with increasing abdominal distention as well as palpitations. On arrival to the ER patient was noted to be in A. fib with RVR. A bedside ultrasound performed by ER physician revealed no pericardial effusion. His chest x-ray showed cardiomegaly. Patient underwent a CT chest which revealed small pericardial effusion, cardiomegaly. Patient was accepted for admission by critical care medicine service. When I evaluated the patient in the ER he was sitting up in the ER stretcher still short of breath with heart rate in the 130s. He denies any fevers chills hemoptysis or abdominal pain. He does complain of increasing abdominal distention over the last 1 week with abdominal tightness. Patient tells me that he takes aspirin at home. He has not seen a physician for years due to lack of insurance. 09/30: Breathing much better. Still on 5 L nasal cannula. Diuresed well overnight. On esmolol drip this morning which is being titrated down. Heart rate 90s atrial fibrillation. Objective Vital Signs / I&O: Vital Signs 09/29/17 13:15 09/29/17 13:45 09/29/17 14:12 Temperature Pulse Rate 134 H 114 H 116 H Respiratory Rate 19 19 18 Blood Pressure 143/66 H 115/90 110/90 Pulse Oximetry 97 97 09/29/17 14:45 09/29/17 14:47 09/29/17 14:48 Temperature 97.4 F L Pulse Rate 109 H 110 H 107 H Respiratory Rate 26 H 25 H 23 Blood Pressure 143/102 H 130/94 H Pulse Oximetry 96 97 09/29/17 15:00 09/29/17 15:07 09/29/17 15:20 Temperature 97.6 F Pulse Rate 111 H 111 H 99 H Respiratory Rate 22 22 21 Blood Pressure 143/88 H 143/88 H 159/93 H Pulse Oximetry 96 96 95 09/29/17 15:41 09/29/17 16:00 09/29/17 16:01 Temperature 97.8 F Pulse Rate 101 H 104 H 101 H Respiratory Rate 32 H 21 25 H Blood Pressure 134/104 H 162/75 H 162/75 H Pulse Oximetry 93 L 94 L 96 09/29/17 16:20 09/29/17 16:33 09/29/17 16:40 Temperature Pulse Rate 107 H 101 H 99 H Respiratory Rate 23 27 H 20 Blood Pressure 155/104 H 141/96 H 137/104 H Pulse Oximetry 96 92 L 96 09/29/17 16:59 09/29/17 17:00 09/29/17 17:13 Temperature Pulse Rate 104 H 106 H 99 H Respiratory Rate 21 30 H 17 Blood Pressure 143/96 H 134/114 H Pulse Oximetry 95 94 L 09/29/17 17:20 09/29/17 17:40 09/29/17 18:00 Temperature Pulse Rate 98 H 94 H 105 H Respiratory Rate 24 22 33 H Blood Pressure 132/92 H 135/95 H Pulse Oximetry 98 96 85 L 09/29/17 18:02 09/29/17 19:00 09/29/17 20:00 Temperature 97.6 F 97.8 F Pulse Rate 105 H 83 94 H Respiratory Rate 44 H 25 H 22 Blood Pressure 121/102 H 134/79 121/74 Pulse Oximetry 96 93 L 94 L 09/29/17 20:54 09/29/17 22:00 09/29/17 23:20 Temperature 97.6 F Pulse Rate 86 96 H 83 Respiratory Rate 17 20 18 Blood Pressure 115/82 Pulse Oximetry 96 95 88 L 09/29/17 23:40 09/30/17 00:00 09/30/17 00:07 Temperature 98.0 F Pulse Rate 91 H 99 H 100 H Respiratory Rate 18 18 35 H Blood Pressure 115/67 110/75 110/75 Pulse Oximetry 96 93 L 95 09/30/17 00:20 09/30/17 00:40 09/30/17 01:00 Temperature Pulse Rate 88 94 H 93 H Respiratory Rate 18 19 27 H Blood Pressure 118/78 118/75 122/64 Pulse Oximetry 94 L 92 L 90 L 09/30/17 01:21 09/30/17 01:40 09/30/17 02:00 Temperature 98.1 F Pulse Rate 91 H 92 H 86 Respiratory Rate 27 H 18 21 Blood Pressure 107/66 118/77 106/77 Pulse Oximetry 91 L 93 L 95 09/30/17 02:21 09/30/17 02:41 09/30/17 03:00 Temperature Pulse Rate 95 H 91 H 99 H Respiratory Rate 29 H 18 39 H Blood Pressure 111/73 162/95 H Pulse Oximetry 91 L 93 L 81 L 09/30/17 03:01 09/30/17 03:20 09/30/17 03:40 Temperature Pulse Rate 98 H 94 H 85 Respiratory Rate 29 H 21 16 Blood Pressure 130/73 127/83 111/80 Pulse Oximetry 92 L 91 L 90 L 09/30/17 04:00 09/30/17 04:15 09/30/17 04:20 Temperature 97.8 F Pulse Rate 100 H 87 88 Respiratory Rate 19 17 23 Blood Pressure 110/85 116/77 Pulse Oximetry 89 L 97 09/30/17 04:40 09/30/17 05:00 09/30/17 05:01 Temperature Pulse Rate 85 97 H 104 H Respiratory Rate 16 34 H 43 H Blood Pressure 108/75 125/89 Pulse Oximetry 95 89 L 89 L 09/30/17 05:20 09/30/17 05:40 09/30/17 06:00 Temperature 97.8 F Pulse Rate 82 87 87 Respiratory Rate 15 18 20 Blood Pressure 117/65 122/75 118/71 Pulse Oximetry 92 L 93 L 91 L 09/30/17 06:20 09/30/17 06:40 09/30/17 07:00 Temperature Pulse Rate 87 87 97 H Respiratory Rate 19 18 39 H Blood Pressure 116/76 135/93 H 121/88 Pulse Oximetry 97 96 92 L 09/30/17 07:20 09/30/17 07:40 09/30/17 08:00 Temperature 97.9 F Pulse Rate 89 91 H 87 Respiratory Rate 24 28 H 24 Blood Pressure 127/78 115/77 106/72 Pulse Oximetry 92 L 93 L 91 L 09/30/17 08:20 09/30/17 08:40 09/30/17 09:00 Temperature Pulse Rate 88 99 H 97 H Respiratory Rate 33 H 25 H 33 H Blood Pressure 124/86 124/80 Pulse Oximetry 94 L 92 L 88 L 09/30/17 09:01 09/30/17 09:20 09/30/17 09:30 Temperature Pulse Rate 93 H 86 91 H Respiratory Rate 36 H 19 20 Blood Pressure 128/80 123/76 Pulse Oximetry 89 L 88 L 95 09/30/17 09:40 09/30/17 10:00 09/30/17 10:01 Temperature Pulse Rate 87 91 H 92 H Respiratory Rate 18 38 H 32 H Blood Pressure 135/70 121/70 Pulse Oximetry 88 L 91 L 90 L 09/30/17 10:20 09/30/17 10:40 09/30/17 11:00 Temperature Pulse Rate 86 91 H 90 Respiratory Rate 25 H 29 H 16 Blood Pressure 115/74 126/76 132/74 Pulse Oximetry 91 L 91 L 92 L Intake & Output 09/29/17 09/30/17 09/30/17 18:59 06:59 18:59 Intake Total 250 / 250 2100 / 2100 250 / 250 Output Total 1775 / 1775 3450 / 3450 Balance -1525 / -1525 -1350 / -1350 250 / 250 Weight 117.6 kg 53.8 kg Intake: IV 250 / 250 1500 / 1500 250 / 250 Brevibloc 2,500 mg/NS 250 mL 250 / 250 1500 / 1500 250 / 250 Premix 2,500 mg In 250 ml @ 50 MCG/KG/MIN 35.28 mls/hr IV.CONT TITRATE PRN Rx#:[id number] Oral 600 / 600 Output: Stool 0 / 0 Urine/Stool Mix 0 / 0 Urine Amount (Catheter) 1775 / 1775 3450 / 3450 Indwelling Urethral Catheter 1775 / 1775 3450 / 3450 Other: # Bowel Movements 0 Result Diagrams: 09/30/17 06:02 09/30/17 06:02 Objective Remarks: HEENT/Neuro: No pallor or icterus, tongue moist, JAMEY, Awake alert oriented 3 , nonfocal grossly, moving all 4 extremities Neck: No JVD Chest/pulmonary: CTA bilaterally Cardiovascular: S1-S2 irregularly irregular no gallop or murmur GI/abdomen: Soft, nontender, bowel sounds present Extremities: Warm bilaterally, no edema Assessment and Plan - Assessment and Plan Plan: 57-year-old male with: Acute respiratory failure CHF A. fib with RVR Pericardial effusion History of BPH Morbid obesity Plan: Neuro: Follow neuro status. Starting aspirin for stroke prophylaxis. May need full anticoagulation following cardiology eval for A. fib. Cardiovascular: Metoprolol 5 mg IV stat followed by 5 mg IV every 6 hourly as needed for rate control. Esmolol drip to be titrated down as tolerated. P.o. Lopressor increased to 50 mg twice daily per Dr. Khalil's. 2D echo revealed LVEF 20% moderate to severe tricuspid regurg. Diuresis with Lasix. Cardiology following Dr. Chi. Recommends full anticoagulation with Coumadin which we will start today. Lisinopril started 09/30. Pulmonary: Continue supplemental O2. Atrovent nebs every 6 hourly. GI/liver: Cardiac diet ordered. Zofran as needed for nausea vomiting. Pepcid p.o. for GI prophylaxis /renal: Diuresis with Lasix, strict intake output, monitor and replete electrolytes, follow BUN creatinine. ID: No indication for antibiotics at this time. Heme: Follow CBC and coags. Patient may require full anticoagulation for A. fib. Will await cardiology evaluation. Endocrine: Watch for hyperglycemia, SSI for glycemic control if needed. Prophylaxis: Pepcid/SCDs/Lovenox. We will consult and transfer to hospitalist service for further medical management. Critical care will be signing off, please reconsult if needed.
--- NOTE | 2017-09-30 13:45 | XR ---
EXAM DATE: 09/30/2017 1:28 PM EDT AGE/SEX: 57 years / Male INDICATIONS: Shortness of breath. CLINICAL DATA: This is the patient's subsequent encounter. Patient reports that signs and symptoms h ave been present for 1 month and indicates a pain score of 0/10. MEDICAL/SURGICAL HISTORY: Cardiovascular disease. Hypertension. None. [place] [facility] [place]29/[place]. . FINDINGS: Right diaphragm. Mild cardiac enlargement. No definite focal infiltrate. CONCLUSION: Mild cardiac enlargement and elevated right diaphragm. Electronically signed by: Monty Ruth MD 09/30/2017 1:44 PM EDT
[2017-09-30] MEDS ORDERED: Metoprolol Inj 5 MG/5 ML Vial IV.PUSH ONE (15:15)
[2017-09-30] MEDS: Metoprolol Tartrate 50 MG Tablet PO SCH (15:35)
[2017-09-30] MEDS: Enoxaparin Inj 40 MG/0.4 ML Syringe SQ SCH (17:11)
[2017-09-30] MEDS: Mag Sulf 1 gm/100 ml Premix 100 ML IV.SIG SCH ×2 (17:11→18:18)
[2017-09-30] MEDS ORDERED: Potassium Chloride 25 MEQ Effervescent Tablet PO ONE (18:00)
[2017-09-30] MEDS ORDERED: Potassium Chlor 10 mEq Premix 10 MEQ/100 ML PIGGYBACK IV.SIG SCH (18:01)
[2017-09-30] MEDS ORDERED: Metoprolol Tartrate 50 MG Tablet PO SCH (21:00)
[2017-09-30 22:37] LABS: Alanine Aminotransferase 31 U/L (12-78); Albumin 3.2 g/dL (3.4-5.0); Anion Gap 5 meq/L (5-15); Aspartate Aminotransferase 21 U/L (15-37); Blood Urea Nitrogen 25 mg/dL (7-18); Calcium 8.6 mg/dL (8.5-10.1); Carbon Dioxide 37.7 meq/L (21.0-32.0); Chloride 97 meq/L (98-107); Glomerular Filtration Rate 60 mL/min (>89); Glucose,Random 104 mg/dL (74-106); Magnesium 2.2 mg/dL (1.5-2.5); Potassium 4.6 meq/L (3.5-5.1); Sodium 140 meq/L (136-145)
[2017-09-30 22:39] LABS: Alkaline Phosphatase 91 U/L (45-117); Total Protein 6.7 g/dL (6.4-8.2)
[2017-10-01] MEDS: Metoprolol Tartrate 50 MG Tablet PO SCH (00:12)
[2017-10-01] MEDS: Chlorhexidine Gluconate 2% 1 Pack (2 Cloths) TOPICAL SCH (04:06)
[2017-10-01 05:47] LABS: Baso # (Auto) 0.1 th/mm3 (0.0-0.2); Baso % (Auto) 0.7 % (0.0-2.0); Eos # (Auto) 0.1 th/mm3 (0.0-0.4); Eos % (Auto) 1.3 % (0.0-4.0); Lymph # (Auto) 2.3 th/mm3 (1.0-4.8); Lymph % (Auto) 29.5 % (9.0-44.0); Mean Corpuscular HGB Conc 34.1 % (32.0-36.0); Mean Corpuscular Hemoglobin 30.5 pg (27.0-34.0); Mean Corpuscular Volume 89.5 fL (80.0-100.0); Mean Platelet Volume 7.7 fL (7.0-11.0); Mono # (Auto) 0.9 th/mm3 (0.0-0.9); Mono % (Auto) 11.3 % (0.0-8.0); Neut # (Auto) 4.5 th/mm3 (1.8-7.7); Neut % (Auto) 57.2 % (16.0-70.0); Platelet Count 207 th/mm3 (150-450); Red Blood Count 4.92 mil/mm3 (4.50-5.90); Red Cell Distribution Width 14.9 % (11.6-17.2); White Blood Count 7.8 th/mm3 (4.0-11.0)
[2017-10-01 05:58] LABS: INR 1.2 Ratio; Prothrombin Time 12.2 sec (9.8-11.6)
[2017-10-01 06:21] LABS: Alanine Aminotransferase 31 U/L (12-78); Albumin 3.2 g/dL (3.4-5.0); Anion Gap 5 meq/L (5-15); Aspartate Aminotransferase 21 U/L (15-37); Blood Urea Nitrogen 23 mg/dL (7-18); Calcium 8.6 mg/dL (8.5-10.1); Carbon Dioxide 38.9 meq/L (21.0-32.0); Chloride 96 meq/L (98-107); Glomerular Filtration Rate 62 mL/min (>89); Glucose,Random 95 mg/dL (74-106); Potassium 4.1 meq/L (3.5-5.1); Sodium 140 meq/L (136-145)
[2017-10-01 06:23] LABS: Alkaline Phosphatase 92 U/L (45-117); Total Protein 6.8 g/dL (6.4-8.2)
--- NOTE | 2017-10-01 08:07 | P.PNCA ---
Subjective Interval history: Denies dyspnea, dizziness, palpitations, CP. Slept well. Physical Exam Vital signs: Vital Signs 09/30/17 08:20 09/30/17 08:40 09/30/17 09:00 Temperature Pulse Rate 88 99 H 97 H Respiratory Rate 33 H 25 H 33 H Blood Pressure 124/86 124/80 Pulse Oximetry 94 L 92 L 88 L 09/30/17 09:01 09/30/17 09:20 09/30/17 09:30 Temperature Pulse Rate 93 H 86 91 H Respiratory Rate 36 H 19 20 Blood Pressure 128/80 123/76 Pulse Oximetry 89 L 88 L 95 09/30/17 09:40 09/30/17 10:00 09/30/17 10:01 Temperature Pulse Rate 87 91 H 92 H Respiratory Rate 18 38 H 32 H Blood Pressure 135/70 121/70 Pulse Oximetry 88 L 91 L 90 L 09/30/17 10:20 09/30/17 10:40 09/30/17 11:00 Temperature Pulse Rate 86 91 H 90 Respiratory Rate 25 H 29 H 16 Blood Pressure 115/74 126/76 132/74 Pulse Oximetry 91 L 91 L 92 L 09/30/17 11:20 09/30/17 11:40 09/30/17 12:00 Temperature 96.5 F L Pulse Rate 89 89 93 H Respiratory Rate 21 31 H 20 Blood Pressure 136/78 138/78 136/70 Pulse Oximetry 92 L 92 L 94 L 09/30/17 12:20 09/30/17 12:40 09/30/17 13:00 Temperature Pulse Rate 89 92 H 96 H Respiratory Rate 18 19 32 H Blood Pressure 125/75 120/72 Pulse Oximetry 94 L 93 L 93 L 09/30/17 13:08 09/30/17 13:20 09/30/17 13:40 Temperature Pulse Rate 95 H 88 91 H Respiratory Rate 29 H 19 20 Blood Pressure 139/86 152/95 H 135/75 Pulse Oximetry 93 L 91 L 94 L 09/30/17 14:00 09/30/17 14:20 09/30/17 14:36 Temperature Pulse Rate 95 H 92 H 90 Respiratory Rate 24 19 21 Blood Pressure 144/86 H 162/81 H 129/72 Pulse Oximetry 94 L 94 L 90 L 09/30/17 14:40 09/30/17 15:00 09/30/17 15:18 Temperature Pulse Rate 91 H 100 H 79 Respiratory Rate 21 22 18 Blood Pressure 115/80 120/80 Pulse Oximetry 89 L 94 L 09/30/17 15:20 09/30/17 15:40 09/30/17 15:51 Temperature Pulse Rate 93 H 88 86 Respiratory Rate 18 22 Blood Pressure 135/85 137/86 Pulse Oximetry 98 95 09/30/17 16:00 09/30/17 16:20 09/30/17 16:40 Temperature 96.4 F L Pulse Rate 86 95 H 92 H Respiratory Rate 24 20 21 Blood Pressure 137/85 143/88 H 136/99 H Pulse Oximetry 95 91 L 95 09/30/17 17:00 09/30/17 17:01 09/30/17 17:20 Temperature Pulse Rate 94 H 90 93 H Respiratory Rate 20 38 H 23 Blood Pressure 150/82 H 155/82 H Pulse Oximetry 94 L 93 L 93 L 09/30/17 17:40 09/30/17 18:00 09/30/17 18:22 Temperature Pulse Rate 93 H 96 H 94 H Respiratory Rate 23 34 H 30 H Blood Pressure 137/69 137/78 140/84 Pulse Oximetry 93 L 93 L 95 09/30/17 18:30 09/30/17 20:00 09/30/17 20:28 Temperature 98.9 F Pulse Rate 90 89 93 H Respiratory Rate 25 H 25 H 17 Blood Pressure 126/63 139/72 Pulse Oximetry 91 L 96 98 09/30/17 22:00 10/01/17 00:00 10/01/17 02:00 Temperature 98.8 F Pulse Rate 96 H 94 H 86 Respiratory Rate 24 Blood Pressure 153/85 H Pulse Oximetry 95 10/01/17 04:00 10/01/17 04:13 10/01/17 06:00 Temperature 98.2 F Pulse Rate 95 H 85 102 H Respiratory Rate 25 H 19 Blood Pressure 149/93 H Pulse Oximetry 95 Intake & Output 09/30/17 10/01/17 10/01/17 18:59 06:59 18:59 Intake Total 1620 / 1620 1100 / 1100 Output Total 3400 / 3400 2400 / 2400 Balance -1780 / -1780 -1300 / -1300 Weight 115 kg Intake: IV 600 / 600 100 / 100 Brevibloc 2,500 mg/NS 250 mL 500 / 500 Premix 2,500 mg In 250 ml @ 50 MCG/KG/MIN 35.28 mls/hr IV.CONT TITRATE PRN Rx#:[id number] Magnesium Sulfate 1 gm/D5W 100 100 / 100 ml Premix 100 ML @ 100 mls/hr IV.SIG Q1H ANGE Rx#:[id number] Oral 1020 / 1020 1000 / 1000 Output: Urine 3400 / 3400 2400 / 2400 Stool 0 / 0 Urine/Stool Mix 0 / 0 Other: # Bowel Movements 0 - Routine Neck Exam Present: JVD - Routine Respiratory Exam Present: CTA bilaterally - Routine Cardiovascular Exam Present: S1, S2, irregularly irregular. Absent: murmur, gallop - Routine Abdominal Exam Present: soft, normoactive bowel sounds. Absent: tenderness, organomegaly - Routine Extremities Exam Absent: cyanosis, clubbing, edema - Urinary Catheter Management Indwelling Urethral Catheter Cath placed during this visit: yes, but has since been removed by the nurse Reason for continuing: Not indwelling catheter Insertion date: 09/29/17 Insertion time: 13:22 Removal date: 09/30/17 Removal time: 08:30 Assessment and Plan - Assessment (1) Congestive heart failure Code(s): I50.9 - Heart failure, unspecified Status: Chronic Plan: Much improved since admission with effective diuresis. Mostly right sided CHF. EF 20% by echo, probably with some RV dysfunction as well. Moreover he has moderate to severe tricuspid regurgitation, likely contributing to ascites, pedal edema. His cardiomyopathy is likely non-ischemic in origin. 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 REC move out of ICU, change to oral furosemide, optimize beta og, FINN-I dosing, discharge only when INR > ~1.8, will f/u PRN (2) Atrial fibrillation Code(s): I48.91 - Unspecified atrial fibrillation Status: Chronic Plan: Suspect his atrial fibrillation is chronic. Even an EKG dated 1988 shows atrial fibrillation. Atria on echo are also moderately enlarged consistent with chronic atrial fibrillation. With his history of hypertension and CHF, his thromboembolic risk is high. HR's overall controlled. REC optimize beta og dosing as much as tolerated, continue warfarin to achieve INR 2-2.5 - Plan Code Status: full code Discussed Condition With: patient (1) Congestive heart failure Qualifiers: Heart failure type: systolic Heart failure chronicity: acute on chronic Qualified Code(s): I50.23 - Acute on chronic systolic (congestive) heart failure (2) Atrial fibrillation Qualifiers: Atrial fibrillation type: chronic Qualified Code(s): I48.2 - Chronic atrial fibrillation
[2017-10-01] MEDS: Famotidine 20 MG Tablet PO SCH ×2 (08:46→21:08)
[2017-10-01] MEDS: Senna/Docusate Sodium 8.6/50 MG Tablet PO SCH ×2 (08:46→21:08)
[2017-10-01] MEDS: Metoprolol Tartrate 100 MG Tablet PO SCH ×2 (08:46→21:08)
[2017-10-01] MEDS: Furosemide 40 MG Tablet PO SCH (08:46)
[2017-10-01] MEDS: Enoxaparin Inj 40 MG/0.4 ML Syringe SQ SCH (17:44)
--- NOTE | 2017-10-01 18:31 | P.PNIM ---
Physical Exam Vital signs: Vital Signs 09/30/17 18:30 09/30/17 20:00 09/30/17 20:28 Temperature 98.9 F Pulse Rate 90 89 93 H Respiratory Rate 25 H 25 H 17 Blood Pressure 126/63 139/72 Pulse Oximetry 91 L 96 98 09/30/17 22:00 10/01/17 00:00 10/01/17 02:00 Temperature 98.8 F Pulse Rate 96 H 94 H 86 Respiratory Rate 24 Blood Pressure 153/85 H Pulse Oximetry 95 10/01/17 04:00 10/01/17 04:13 10/01/17 06:00 Temperature 98.2 F Pulse Rate 95 H 85 102 H Respiratory Rate 25 H 19 Blood Pressure 149/93 H Pulse Oximetry 95 10/01/17 08:00 10/01/17 09:11 10/01/17 10:00 Temperature 97.1 F L Pulse Rate 96 H 104 H 95 H Respiratory Rate 22 21 Blood Pressure 123/78 Pulse Oximetry 93 L 96 10/01/17 12:00 10/01/17 14:00 10/01/17 15:06 Temperature 98.3 F Pulse Rate 88 98 H 92 H Respiratory Rate 21 20 Blood Pressure 141/71 H Pulse Oximetry 92 L 10/01/17 16:00 10/01/17 18:00 Temperature 97.9 F Pulse Rate 102 H 96 H Respiratory Rate 30 H Blood Pressure 135/80 Pulse Oximetry 94 L Intake & Output 09/30/17 10/01/17 10/01/17 18:59 06:59 18:59 Intake Total 1620 / 1620 1100 / 1100 960 / 960 Output Total 3400 / 3400 2400 / 2400 2300 / 2300 Balance -1780 / -1780 -1300 / -1300 -1340 / -1340 Weight 115 kg Intake: IV 600 / 600 100 / 100 Brevibloc 2,500 mg/NS 250 mL 500 / 500 Premix 2,500 mg In 250 ml @ 50 MCG/KG/MIN 35.28 mls/hr IV.CONT TITRATE PRN Rx#:[id number] Magnesium Sulfate 1 gm/D5W 100 100 / 100 ml Premix 100 ML @ 100 mls/hr IV.SIG Q1H ANGE Rx#:[id number] Oral 1020 / 1020 1000 / 1000 960 / 960 Output: Urine 3400 / 3400 2400 / 2400 2300 / 2300 Stool 0 / 0 Urine/Stool Mix 0 / 0 Other: Date of Last Bowel Movement 10/01/17 # Bowel Movements 0 1 Narrative: GENERAL: Patient sitting up in bed. Appears comfortable. SKIN: Warm and dry. HEAD: Normocephalic. EYES: No scleral icterus. No injection or drainage. NECK: Supple, trachea midline. No JVD. CARDIOVASCULAR: Regular rate and rhythm without murmurs, gallops, or rubs. RESPIRATORY: Breath sounds equal bilaterally. No accessory muscle use. GASTROINTESTINAL: Abdomen soft, non-tender, nondistended. MUSCULOSKELETAL: No cyanosis. +1 bilateral lower extremity edema. BACK: Nontender without obvious deformity. No CVA tenderness. - Urinary Catheter Management Indwelling Urethral Catheter Cath placed during this visit: yes, but has since been removed by the nurse Reason for continuing: Not indwelling catheter Insertion date: 09/29/17 Insertion time: 13:22 Removal date: 09/30/17 Removal time: 08:30 Results - Labs CBC & Chem 7: 10/01/17 04:53 10/01/17 04:53 Laboratory Results - last 24 hr 09/30/17 09/30/17 10/01/17 20:04 21:53 04:53 WBC 7.8 RBC 4.92 Hgb 15.0 Hct 44.0 MCV 89.5 MCH 30.5 MCHC 34.1 RDW 14.9 Plt Count 207 MPV 7.7 Neut % (Auto) 57.2 Lymph % (Auto) 29.5 [place] % (Auto) 11.3 H Eos % (Auto) 1.3 Baso % (Auto) 0.7 Neut # (Auto) 4.5 Lymph # (Auto) 2.3 [place] # (Auto) 0.9 Eos # (Auto) 0.1 Baso # (Auto) 0.1 WBC Differential . Differential Comment Auto diff final PT INR Sodium 140 Potassium 4.6 Chloride 97 L Carbon Dioxide 37.7 H Anion Gap 5 BUN 25 H Creatinine 1.23 Estimated GFR 60 L Random Glucose 104 Calcium 8.6 Magnesium Cancelled 2.2 Total Bilirubin 1.0 AST 21 ALT 31 Alkaline Phosphatase 91 Total Protein 6.7 D Albumin 3.2 L 10/01/17 10/01/17 04:53 04:53 WBC RBC Hgb Hct MCV MCH MCHC RDW Plt Count MPV Neut % (Auto) Lymph % (Auto) [place] % (Auto) Eos % (Auto) Baso % (Auto) Neut # (Auto) Lymph # (Auto) [place] # (Auto) Eos # (Auto) Baso # (Auto) WBC Differential Differential Comment PT 12.2 H INR 1.2 Sodium 140 Potassium 4.1 Chloride 96 L Carbon Dioxide 38.9 H Anion Gap 5 BUN 23 H Creatinine 1.20 Estimated GFR 62 L Random Glucose 95 Calcium 8.6 Magnesium Total Bilirubin 1.1 H AST 21 ALT 31 Alkaline Phosphatase 92 Total Protein 6.8 Albumin 3.2 L Assessment and Plan - Plan 57-year-old male with: //Acute respiratory failure //CHF //A. fib with RVR //Pericardial effusion //History of BPH //Morbid obesity ===10/01/17 //CHF exacerbation. Patient improving. We will continue diuresis. Continue to monitor. Will need cardiology clearance. //Contraction alkalosis. Patient still however with some edema. Will give a single dose of Diamox. Continue to monitor. //Consult PT. //Transfer to [facility] Hopefully can go home tomorrow if cleared by cardiology.. Plan: Neuro: Follow neuro status. Starting aspirin for stroke prophylaxis. May need full anticoagulation following cardiology eval for A. fib. Cardiovascular: Metoprolol 5 mg IV stat followed by 5 mg IV every 6 hourly as needed for rate control. Esmolol drip to be titrated down as tolerated. P.o. Lopressor increased to 50 mg twice daily per Dr. Khalil's. 2D echo revealed LVEF 20% moderate to severe tricuspid regurg. Diuresis with Lasix. Cardiology following Dr. Chi. Recommends full anticoagulation with Coumadin which we will start today. Lisinopril started 09/30. Pulmonary: Continue supplemental O2. Atrovent nebs every 6 hourly. GI/liver: Cardiac diet ordered. Zofran as needed for nausea vomiting. Pepcid p.o. for GI prophylaxis /renal: Diuresis with Lasix, strict intake output, monitor and replete electrolytes, follow BUN creatinine. ID: No indication for antibiotics at this time. Heme: Follow CBC and coags. Patient may require full anticoagulation for A. fib. Will await cardiology evaluation. Endocrine: Watch for hyperglycemia, SSI for glycemic control if needed. Prophylaxis: Pepcid/SCDs/Lovenox. Discharge Planning: PT consult pending. Hopefully can go home tomorrow if cleared by cardiology..
[2017-10-02] MEDS: Chlorhexidine Gluconate 2% 1 Pack (2 Cloths) TOPICAL SCH (06:06)
[2017-10-02 06:31] LABS: Baso # (Auto) 0.1 th/mm3 (0.0-0.2); Baso % (Auto) 0.6 % (0.0-2.0); Eos # (Auto) 0.2 th/mm3 (0.0-0.4); Eos % (Auto) 1.9 % (0.0-4.0); Hematocrit 44.8 % (39.0-51.0); Hemoglobin 14.8 gm/dL (13.0-17.0); Lymph # (Auto) 3.1 th/mm3 (1.0-4.8); Lymph % (Auto) 38.2 % (9.0-44.0); Mean Corpuscular HGB Conc 33.1 % (32.0-36.0); Mean Corpuscular Hemoglobin 30.3 pg (27.0-34.0); Mean Corpuscular Volume 91.6 fL (80.0-100.0); Mean Platelet Volume 7.7 fL (7.0-11.0); Mono % (Auto) 12.7 % (0.0-8.0); Neut # (Auto) 3.8 th/mm3 (1.8-7.7); Neut % (Auto) 46.6 % (16.0-70.0); Platelet Count 203 th/mm3 (150-450); Red Blood Count 4.89 mil/mm3 (4.50-5.90); Red Cell Distribution Width 14.6 % (11.6-17.2); White Blood Count 8.2 th/mm3 (4.0-11.0)
[2017-10-02 06:35] LABS: INR 1.3 Ratio; Prothrombin Time 12.7 sec (9.8-11.6)
[2017-10-02 06:54] LABS: Alanine Aminotransferase 31 U/L (12-78); Albumin 3.3 g/dL (3.4-5.0); Anion Gap 6 meq/L (5-15); Aspartate Aminotransferase 23 U/L (15-37); Blood Urea Nitrogen 20 mg/dL (7-18); Carbon Dioxide 34.2 meq/L (21.0-32.0); Chloride 99 meq/L (98-107); Glomerular Filtration Rate 67 mL/min (>89); Glucose,Random 94 mg/dL (74-106); Magnesium 2.1 mg/dL (1.5-2.5); Potassium 4.4 meq/L (3.5-5.1); Sodium 139 meq/L (136-145)
[2017-10-02 06:56] LABS: Alkaline Phosphatase 95 U/L (45-117); Phosphorus 3.2 mg/dL (2.5-4.9); Total Protein 6.9 g/dL (6.4-8.2)
[2017-10-02] MEDS: Metoprolol Tartrate 100 MG Tablet PO SCH ×2 (09:35→20:59)
[2017-10-02] MEDS: Senna/Docusate Sodium 8.6/50 MG Tablet PO SCH ×2 (09:35→20:59)
[2017-10-02] MEDS: Famotidine 20 MG Tablet PO SCH ×2 (09:35→20:59)
[2017-10-02] MEDS: Furosemide 40 MG Tablet PO SCH (09:35)
--- NOTE | 2017-10-02 09:52 | P.PNIM ---
Subjective Interval history: f/u; CHF resting comfortably with no sob or chest pain. no new complaints. PT at the bedside. Physical Exam Vital signs: Vital Signs 10/01/17 10:00 10/01/17 12:00 10/01/17 14:00 Temperature 98.3 F Pulse Rate 95 H 88 98 H Respiratory Rate 21 Blood Pressure 141/71 H Pulse Oximetry 92 L 10/01/17 15:06 10/01/17 16:00 10/01/17 18:00 Temperature 97.9 F Pulse Rate 92 H 102 H 96 H Respiratory Rate 20 30 H Blood Pressure 135/80 Pulse Oximetry 94 L 10/01/17 19:09 10/01/17 19:40 10/01/17 20:00 Temperature 97.8 F Pulse Rate 96 H 99 H 94 H Respiratory Rate 20 18 Blood Pressure 131/88 Pulse Oximetry 92 L 10/02/17 00:00 10/02/17 04:00 10/02/17 04:03 Temperature 97.5 F L 97.4 F L Pulse Rate 88 83 77 Respiratory Rate 18 18 22 Blood Pressure 153/91 H 142/93 H Pulse Oximetry 95 94 L Intake & Output 10/01/17 10/02/17 10/02/17 18:59 06:59 18:59 Intake Total 960 / 960 960 / 960 Output Total 2300 / 2300 1850 / 1850 Balance -1340 / -1340 -890 / -890 Weight 109.5 kg Intake: Oral 960 / 960 960 / 960 Output: Urine 2300 / 2300 1850 / 1850 Other: Date of Last Bowel Movement 10/01/17 # Bowel Movements 1 0 Weight On Admission 110.04 kg - Constitutional no acute distress - Routine Respiratory Exam Present: CTA bilaterally - Routine Cardiovascular Exam Present: RRR - Routine Abdominal Exam Present: soft - Routine Extremities Exam Comments: mild bilateral pedal edema. - Routine Neurological Exam Present: alert, oriented X3 - Urinary Catheter Management Indwelling Urethral Catheter Cath placed during this visit: yes, but has since been removed by the nurse Reason for continuing: Not indwelling catheter Insertion date: 09/29/17 Insertion time: 13:22 Removal date: 09/30/17 Removal time: 08:30 Results - Labs CBC & Chem 7: 10/02/17 05:51 10/02/17 05:51 Laboratory Results - last 24 hr 10/02/17 10/02/17 10/02/17 05:51 05:51 05:51 WBC 8.2 RBC 4.89 Hgb 14.8 Hct 44.8 MCV 91.6 MCH 30.3 MCHC 33.1 RDW 14.6 Plt Count 203 MPV 7.7 Neut % (Auto) 46.6 Lymph % (Auto) 38.2 [place] % (Auto) 12.7 H Eos % (Auto) 1.9 Baso % (Auto) 0.6 Neut # (Auto) 3.8 Lymph # (Auto) 3.1 [place] # (Auto) 1.0 H Eos # (Auto) 0.2 Baso # (Auto) 0.1 WBC Differential . Differential Comment Auto diff final PT 12.7 H INR 1.3 Sodium 139 Potassium 4.4 Chloride 99 Carbon Dioxide 34.2 H Anion Gap 6 BUN 20 H Creatinine 1.12 Estimated GFR 67 L Random Glucose 94 Calcium 9.0 Phosphorus 3.2 Magnesium 2.1 Total Bilirubin 1.2 H AST 23 ALT 31 Alkaline Phosphatase 95 Total Protein 6.9 Albumin 3.3 L Assessment and Plan - Plan -acute on chronic systolic CHF. Patient improving. We will continue diuresis. continue FINN and metoprolol-Continue to monitor. -atrial fibrillation; HR controlled- continue Metorolol and Coumadin. will monitor INR- dc Lovenox when INR > 2. -Consulted PT. Discharge Planning: dc home when INR > 1.8- per cardiology recommendations. awaiting PT evaluation.
[2017-10-02] MEDS: Enoxaparin Inj 40 MG/0.4 ML Syringe SQ SCH (17:59)
[2017-10-03] MEDS: Chlorhexidine Gluconate 2% 1 Pack (2 Cloths) TOPICAL SCH (05:31)
--- NOTE | 2017-10-03 09:23 | P.PNIM ---
Subjective Interval history: f/u; CHF in no acute distress. no chest pain or sob. looks comfortable with no new complaints. Physical Exam Vital signs: Vital Signs 10/02/17 10:00 10/02/17 12:00 10/02/17 14:00 Temperature 98.0 F Pulse Rate 104 H 64 88 Respiratory Rate 20 Blood Pressure 140/80 Pulse Oximetry 91 L 10/02/17 15:00 10/02/17 16:00 10/02/17 18:00 Temperature 97.3 F L Pulse Rate 98 H 101 H 101 H Respiratory Rate 18 20 Blood Pressure 146/93 H Pulse Oximetry 93 L 10/02/17 20:00 10/03/17 00:00 10/03/17 04:00 Temperature 97.5 F L 97.9 F 97.1 F L Pulse Rate 81 80 85 Respiratory Rate 20 20 20 Blood Pressure 129/92 H 135/80 147/96 H Pulse Oximetry 94 L 91 L 96 10/03/17 05:34 10/03/17 08:00 10/03/17 08:56 Temperature 97.4 F L Pulse Rate 87 62 87 Respiratory Rate 18 20 18 Blood Pressure 139/99 H Pulse Oximetry 94 L 96 Intake & Output 10/02/17 10/03/17 10/03/17 18:59 06:59 18:59 Intake Total 600 / 600 480 / 480 Output Total 575 / 575 650 / 650 Balance 25 / 25 -170 / -170 Weight 105.4 kg Intake: Oral 600 / 600 480 / 480 Output: Urine 575 / 575 650 / 650 Other: # Voids 2 # Bowel Movements 2 0 - Constitutional no acute distress - Routine Respiratory Exam Present: CTA bilaterally - Routine Cardiovascular Exam Present: RRR - Routine Abdominal Exam Present: soft - Routine Extremities Exam Comments: no pedal edema. - Routine Neurological Exam Present: alert, oriented X3 - Urinary Catheter Management Indwelling Urethral Catheter Cath placed during this visit: yes, but has since been removed by the nurse Reason for continuing: Not indwelling catheter Insertion date: 09/29/17 Insertion time: 13:22 Removal date: 09/30/17 Removal time: 08:30 Results - Labs CBC & Chem 7: 10/02/17 05:51 10/02/17 05:51 Assessment and Plan - Plan -acute on chronic systolic CHF. Patient improving. We will continue diuresis. continue FINN and metoprolol-Continue to monitor. -atrial fibrillation; HR controlled- continue Metorolol and Coumadin. will monitor INR- dc Lovenox when INR > 2. -Consulted PT. Discharge Planning: dc home when INR > 1.8- per cardiology recommendations. case management will be consulted to assist with dc planning/ needs.
[2017-10-03] MEDS: Metoprolol Tartrate 100 MG Tablet PO SCH ×2 (09:32→21:41)
[2017-10-03] MEDS: Famotidine 20 MG Tablet PO SCH ×2 (09:32→21:41)
[2017-10-03] MEDS: Furosemide 40 MG Tablet PO SCH (09:32)
[2017-10-03] MEDS: Senna/Docusate Sodium 8.6/50 MG Tablet PO SCH ×2 (09:32→21:41)
[2017-10-03 09:39] LABS: Baso % (Auto) 0.7 % (0.0-2.0); Eos # (Auto) 0.1 th/mm3 (0.0-0.4); Eos % (Auto) 2.1 % (0.0-4.0); Hematocrit 46.6 % (39.0-51.0); Hemoglobin 15.2 gm/dL (13.0-17.0); Lymph % (Auto) 42.4 % (9.0-44.0); Mean Corpuscular HGB Conc 32.6 % (32.0-36.0); Mean Corpuscular Hemoglobin 29.7 pg (27.0-34.0); Mean Platelet Volume 7.6 fL (7.0-11.0); Mono # (Auto) 0.8 th/mm3 (0.0-0.9); Neut # (Auto) 3.1 th/mm3 (1.8-7.7); Neut % (Auto) 43.8 % (16.0-70.0); Platelet Count 226 th/mm3 (150-450); Red Blood Count 5.13 mil/mm3 (4.50-5.90); Red Cell Distribution Width 14.6 % (11.6-17.2); White Blood Count 7.1 th/mm3 (4.0-11.0)
[2017-10-03 09:41] LABS: INR 1.4 Ratio; Prothrombin Time 14.2 sec (9.8-11.6)
[2017-10-03 09:52] LABS: Albumin 3.4 g/dL (3.4-5.0); Anion Gap 5 meq/L (5-15); Aspartate Aminotransferase 31 U/L (15-37); Blood Urea Nitrogen 22 mg/dL (7-18); Calcium 9.3 mg/dL (8.5-10.1); Chloride 100 meq/L (98-107); Glomerular Filtration Rate 71 mL/min (>89); Glucose,Random 83 mg/dL (74-106); Potassium 4.5 meq/L (3.5-5.1); Sodium 138 meq/L (136-145)
[2017-10-03 09:53] LABS: Alanine Aminotransferase 42 U/L (12-78)
[2017-10-03 09:55] LABS: Alkaline Phosphatase 112 U/L (45-117); Total Protein 7.3 g/dL (6.4-8.2)
[2017-10-03] MEDS: Enoxaparin Inj 40 MG/0.4 ML Syringe SQ SCH (18:17)
[2017-10-04] MEDS: Chlorhexidine Gluconate 2% 1 Pack (2 Cloths) TOPICAL SCH (06:12)
[2017-10-04 08:08] LABS: INR 1.6 Ratio; Prothrombin Time 16.4 sec (9.8-11.6)
[2017-10-04 08:19] LABS: Albumin 3.4 g/dL (3.4-5.0); Anion Gap 10 meq/L (5-15); Aspartate Aminotransferase 39 U/L (15-37); Blood Urea Nitrogen 24 mg/dL (7-18); Calcium 9.4 mg/dL (8.5-10.1); Carbon Dioxide 29.5 meq/L (21.0-32.0); Chloride 100 meq/L (98-107); Glomerular Filtration Rate 79 mL/min (>89); Glucose,Random 85 mg/dL (74-106); Potassium 4.3 meq/L (3.5-5.1); Sodium 139 meq/L (136-145)
[2017-10-04 08:25] LABS: Alanine Aminotransferase 54 U/L (12-78); Alkaline Phosphatase 120 U/L (45-117); Total Protein 7.4 g/dL (6.4-8.2)
--- NOTE | 2017-10-04 08:44 | P.PNIM ---
Subjective Interval history: f/u; CHF resting comfortably with no distress. no chest pain or sob. no new complaints. Physical Exam Vital signs: Vital Signs 10/03/17 08:56 10/03/17 12:00 10/03/17 16:00 Temperature 97.4 F L 97.7 F Pulse Rate 87 91 H 58 L Respiratory Rate 18 20 20 Blood Pressure 145/99 H 117/85 Pulse Oximetry 96 94 L 95 10/03/17 16:07 10/03/17 17:10 10/03/17 20:00 Temperature 98.1 F Pulse Rate 91 H 80 87 Respiratory Rate 18 18 Blood Pressure 127/99 H Pulse Oximetry 95 10/03/17 20:35 10/04/17 00:00 10/04/17 03:33 Temperature 97.8 F Pulse Rate 63 82 93 H Respiratory Rate 18 18 22 Blood Pressure 111/81 Pulse Oximetry 93 L 10/04/17 04:00 Temperature 97.9 F Pulse Rate 84 Respiratory Rate 17 Blood Pressure 103/85 Pulse Oximetry 92 L Intake & Output 10/03/17 10/04/17 10/04/17 18:59 06:59 18:59 Intake Total 720 / 720 840 / 840 Output Total 1400 / 1400 1000 / 1000 Balance -680 / -680 -160 / -160 Weight 105.4 kg Intake: Oral 720 / 720 840 / 840 Output: Urine 1400 / 1400 1000 / 1000 Other: # Voids 4 Date of Last Bowel Movement 10/01/17 10/03/17 - Constitutional no acute distress - Routine Respiratory Exam Present: CTA bilaterally - Routine Cardiovascular Exam Present: RRR - Routine Abdominal Exam Present: soft - Routine Extremities Exam Comments: no pedal edema. - Routine Neurological Exam Present: alert, oriented X3 - Urinary Catheter Management Indwelling Urethral Catheter Cath placed during this visit: yes, but has since been removed by the nurse Reason for continuing: Not indwelling catheter Insertion date: 09/29/17 Insertion time: 13:22 Removal date: 09/30/17 Removal time: 08:30 Results - Labs CBC & Chem 7: 10/03/17 08:17 10/04/17 06:24 Laboratory Results - last 24 hr 10/03/17 10/03/17 10/03/17 08:17 08:17 08:17 WBC 7.1 RBC 5.13 Hgb 15.2 Hct 46.6 MCV 91.0 MCH 29.7 MCHC 32.6 RDW 14.6 Plt Count 226 MPV 7.6 Neut % (Auto) 43.8 Lymph % (Auto) 42.4 [place] % (Auto) 11.0 H Eos % (Auto) 2.1 Baso % (Auto) 0.7 Neut # (Auto) 3.1 Lymph # (Auto) 3.0 [place] # (Auto) 0.8 Eos # (Auto) 0.1 Baso # (Auto) 0.0 WBC Differential . Differential Comment Auto diff final PT 14.2 H INR 1.4 Sodium 138 Potassium 4.5 Chloride 100 Carbon Dioxide 33.0 H Anion Gap 5 BUN 22 H Creatinine 1.07 Estimated GFR 71 L Random Glucose 83 Calcium 9.3 Total Bilirubin 1.1 H AST 31 ALT 42 Alkaline Phosphatase 112 Total Protein 7.3 Albumin 3.4 10/04/17 10/04/17 06:24 06:24 WBC RBC Hgb Hct MCV MCH MCHC RDW Plt Count MPV Neut % (Auto) Lymph % (Auto) [place] % (Auto) Eos % (Auto) Baso % (Auto) Neut # (Auto) Lymph # (Auto) [place] # (Auto) Eos # (Auto) Baso # (Auto) WBC Differential Differential Comment PT 16.4 H INR 1.6 Sodium 139 Potassium 4.3 Chloride 100 Carbon Dioxide 29.5 Anion Gap 10 BUN 24 H Creatinine 0.97 Estimated GFR 79 L Random Glucose 85 Calcium 9.4 Total Bilirubin 0.9 AST 39 H ALT 54 Alkaline Phosphatase 120 H Total Protein 7.4 Albumin 3.4 Assessment and Plan - Plan -acute on chronic systolic CHF. Patient improving. We will continue diuresis. continue FINN and metoprolol-Continue to monitor. -atrial fibrillation; HR controlled- continue Metorolol and Coumadin. INR is trending up.will monitor INR- dc Lovenox when INR > 2. -Consulted PT. Discharge Planning: dc home when INR > 1.8- per cardiology recommendations- likely tomorrow. case management consulted to assist with dc planning/ needs.
[2017-10-04] MEDS: Famotidine 20 MG Tablet PO SCH ×2 (09:22→20:58)
[2017-10-04] MEDS: Metoprolol Tartrate 100 MG Tablet PO SCH ×2 (09:22→20:58)
[2017-10-04] MEDS: Senna/Docusate Sodium 8.6/50 MG Tablet PO SCH ×2 (09:23→20:58)
[2017-10-04] MEDS: Furosemide 40 MG Tablet PO SCH (09:23)
[2017-10-04] MEDS: Enoxaparin Inj 40 MG/0.4 ML Syringe SQ SCH (18:09)
[2017-10-05 05:33] VITALS: BP 128/96; RESP 18; TEMP 98.7; O2SAT 91
[2017-10-05 06:51] LABS: INR 1.8 Ratio; Prothrombin Time 18.1 sec (9.8-11.6)
--- NOTE | 2017-10-05 08:08 | P.PNIM ---
Subjective Interval history: f/u; CHF in no acute distress. no chest pain or sob. anxious to go home. d/w the RN and no acute issues over night. Physical Exam Vital signs: Vital Signs 10/04/17 09:09 10/04/17 12:00 10/04/17 15:37 Temperature 97.4 F L Pulse Rate 84 90 70 Respiratory Rate 17 18 18 Blood Pressure 115/61 Pulse Oximetry 92 L 53 L 10/04/17 16:00 10/04/17 19:34 10/04/17 19:35 Temperature 97.2 F L Pulse Rate 43 L 88 Respiratory Rate 20 18 Blood Pressure 130/92 H Pulse Oximetry 95 95 10/04/17 20:00 10/05/17 00:00 10/05/17 03:20 Temperature 98 F 97 F L Pulse Rate 90 92 H 78 Respiratory Rate 20 18 16 Blood Pressure 113/90 128/100 H Pulse Oximetry 94 L 98 10/05/17 04:00 Temperature 98.7 F Pulse Rate 85 Respiratory Rate 18 Blood Pressure 128/96 H Pulse Oximetry 91 L Intake & Output 10/04/17 10/05/17 10/05/17 18:59 06:59 18:59 Intake Total 720 / 720 720 / 720 Output Total 1500 / 1500 1400 / 1400 Balance -780 / -780 -680 / -680 Weight 105.4 kg Intake: Oral 720 / 720 720 / 720 Output: Urine 1500 / 1500 1400 / 1400 Stool 0 / 0 Urine/Stool Mix 0 / 0 Other: # Voids 4 Date of Last Bowel Movement 10/03/17 10/03/17 # Bowel Movements 2 2 - Constitutional no acute distress - Routine Respiratory Exam Present: CTA bilaterally - Routine Cardiovascular Exam Present: RRR - Routine Abdominal Exam Present: soft - Routine Extremities Exam Comments: no pedal edema. - Routine Neurological Exam Present: alert, oriented X3 - Urinary Catheter Management Indwelling Urethral Catheter Cath placed during this visit: yes, but has since been removed by the nurse Reason for continuing: Not indwelling catheter Insertion date: 09/29/17 Insertion time: 13:22 Removal date: 09/30/17 Removal time: 08:30 Results - Labs CBC & Chem 7: 10/03/17 08:17 10/04/17 06:24 Laboratory Results - last 24 hr 10/04/17 10/04/17 10/05/17 06:24 06:24 06:12 PT 16.4 H 18.1 H INR 1.6 1.8 Sodium 139 Potassium 4.3 Chloride 100 Carbon Dioxide 29.5 Anion Gap 10 BUN 24 H Creatinine 0.97 Estimated GFR 79 L Random Glucose 85 Calcium 9.4 Total Bilirubin 0.9 AST 39 H ALT 54 Alkaline Phosphatase 120 H Total Protein 7.4 Albumin 3.4 Assessment and Plan - Plan -acute on chronic systolic CHF. Patient improving. We will continue diuresis. continue FINN and metoprolol-Continue to monitor. -atrial fibrillation; HR controlled- continue Metorolol and Coumadin. INR trended up. continue Coumadin with INR monitoring as outpatient. -Consulted PT. Discharge Planning: dc home today. see med list. f/u; pcp and cardiology. d/w the patient and RN.
--- NOTE | 2017-10-05 08:11 | P.DS ---
Date of admission: 09/29/17 11:53 Primary care physician: No Primary Care Physician Brief History from admission: 57-year-old male with a medical history significant for atrial fibrillation who has not followed up with physicians for years who presented to the ER today with progressive shortness of breath worsening over the last week or so with increasing abdominal distention as well as palpitations. On arrival to the ER patient was noted to be in A. fib with RVR. A bedside ultrasound performed by ER physician revealed no pericardial effusion. His chest x-ray showed cardiomegaly. Patient underwent a CT chest which revealed small pericardial effusion, cardiomegaly. Patient was accepted for admission by critical care medicine service. When I evaluated the patient in the ER he was sitting up in the ER stretcher still short of breath with heart rate in the 130s. He denies any fevers chills hemoptysis or abdominal pain. He does complain of increasing abdominal distention over the last 1 week with abdominal tightness. Patient tells me that he takes aspirin at home. He has not seen a physician for years due to lack of insurance. DS: Medications - Discharge Medications Prescriptions: enalapril maleate 10 mg PO DAILY 30 Days #30 tab furosemide 40 mg PO DAILY 30 Days #30 tab metoprolol tartrate 100 mg PO BID 30 Days #60 tab potassium chloride 20 meq PO DAILY 30 Days #60 cap warfarin [Coumadin] 5 mg PO DAILY 30 Days #30 tab DS: Summary Hospital Course: patient was admitted with systolic CHF. he was started on diuretic, FINN and BB. he was also started on Coumadin for a-fib. his clinical condition much improved.his INR trended up to 1.8 prior to discharge. he was evaluated by cardiology. - Time Spent with Patient Total time spent providing and/or coordinating discharge services: Less than 30 minutes - Quality: VTE Deep Vein Thrombosis/Pulmonary Embolism Present on Admission: No Exam Vital signs: Vital Signs 10/04/17 09:09 10/04/17 12:00 10/04/17 15:37 Temperature 97.4 F L Pulse Rate 84 90 70 Respiratory Rate 17 18 18 Blood Pressure 115/61 Pulse Oximetry 92 L 53 L 10/04/17 16:00 10/04/17 19:34 10/04/17 19:35 Temperature 97.2 F L Pulse Rate 43 L 88 Respiratory Rate 20 18 Blood Pressure 130/92 H Pulse Oximetry 95 95 10/04/17 20:00 10/05/17 00:00 10/05/17 03:20 Temperature 98 F 97 F L Pulse Rate 90 92 H 78 Respiratory Rate 20 18 16 Blood Pressure 113/90 128/100 H Pulse Oximetry 94 L 98 10/05/17 04:00 Temperature 98.7 F Pulse Rate 85 Respiratory Rate 18 Blood Pressure 128/96 H Pulse Oximetry 91 L Intake & Output 10/04/17 10/05/17 10/05/17 18:59 06:59 18:59 Intake Total 720 / 720 720 / 720 Output Total 1500 / 1500 1400 / 1400 Balance -780 / -780 -680 / -680 Weight 105.4 kg Intake: Oral 720 / 720 720 / 720 Output: Urine 1500 / 1500 1400 / 1400 Stool 0 / 0 Urine/Stool Mix 0 / 0 Other: # Voids 4 Date of Last Bowel Movement 10/03/17 10/03/17 # Bowel Movements 2 2 Results Procedures completed during hospitalization: none. Labs on day of discharge: Labs from last 24 hours 10/05/17 10/04/17 06:12 06:24 PT 18.1 H INR 1.8 Sodium 139 Potassium 4.3 Chloride 100 Carbon Dioxide 29.5 Anion Gap 10 BUN 24 H Creatinine 0.97 Estimated GFR 79 L Random Glucose 85 Calcium 9.4 Total Bilirubin 0.9 AST 39 H ALT 54 Alkaline Phosphatase 120 H Total Protein 7.4 Albumin 3.4 - Impressions ITS Impressions Chest CT 09/29/17 11:43 CONCLUSION: 1. Global cardiomegaly with minimal basilar edema and atelectasis. Mild emphysema. No significant pleural effusion. 2. Small pericardial effusion. 3. Mild ascites. 4. Mild coronary calcifications. Chest X-Ray 09/30/17 12:59 CONCLUSION: Mild cardiac enlargement and elevated right diaphragm. Discharge Plan - Discharge Disposition Patient Disposition: 01 Discharge Home - Discharge Condition Condition: Stable - Discharge Order Discharge Orders: Discharge Order (Routine); Ordered 10/05/17 Ordered By: Taylor Looney - Physicians Team Primary Care Provider: Primary Care Grecia,Barbara Attending Provider: Taylor Looney Other Providers: Errol Mcgrath MD
[2017-10-05 09:39] VITALS: PULSE 88
== END 2017-10-05 09:54 | disposition home or self-care (01) ==
LOC: NEPE 08:33 → NEDA 11:53 → HIMC 14:35 → N04 10-01 19:40
PROVIDERS: ADMIT Internal Medicine; ATTEND Internal Medicine